=== PATIENT | female | born 1970 | race Caucasian/White ===

== ENCOUNTER 2018-07-31 08:42 | Emergency (ER) | payer SELFPAY ==
[2018-07-31] MEDS ORDERED: NA CHLORIDE 0.9% 1,000 ML ONE (09:31)
[2018-07-31] MEDS ORDERED: ONDANSETRON 4 MG/2 ML VIAL ONE (09:31)
[2018-07-31 09:35] LABS: Urine Bacteria 20-50 /HPF (<20); Urine Culture Reflex Order NOT NEEDED; Urine RBC NONE SEEN /HPF (NONE SEEN)
[2018-07-31 09:43] LABS: Urine Blood TRACE (NEG); Urine Glucose 3+ (NEG); Urine Protein 1+ (NEG); Urine Specific Gravity 1.015 (1.005-1.030)
[2018-07-31 09:56] LABS: Albumin 4.3 g/dL (3.4-5.0); Bilirubin Direct 0.1 mg/dL (0-0.2); Bilirubin Total 0.4 mg/dL (0.2-1.0); Potassium 4.7 mmol/L (3.5-5.1); Protein, Total 8.2 g/dL (6.4-8.2)
--- NOTE | 2018-07-31 10:13 | ER ---
Nurse's Notes [facility] Name: Chantal Lunsford Age: 48 yrs Sex: Female : 1970 Arrival Date: 07/31/2018 Time: 08:46 Bed 19 Private MD: Unknown, Unknown Diagnosis: Vomiting;Diarrhea, unspecified Presentation: 07/31 08:58 Presenting complaint: Patient states: vomiting, diarrhea, abd pain since last night. iw Transition of care: patient was not received from another setting of care. Onset of symptoms was July 31, 2018. Risk Assessment: Do you want to hurt yourself or someone else? Patient reports no desire to harm self or others. Initial Sepsis Screen: Does the patient meet any 2 criteria? No. Patient's initial sepsis screen is negative. Does the patient have a suspected source of infection? No. Patient's initial sepsis screen is negative. Care prior to arrival: None. 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 - Social history:: Smoking status: Patient uses tobacco products, smokes one pack cigarettes per day. - Ebola Screening: : Patient negative for fever greater than or equal to 101.5 degrees Fahrenheit, and additional compatible Ebola Virus Disease symptoms Patient denies exposure to infectious person Patient denies travel to an Ebola-affected area in the 21 days before illness onset No symptoms or risks identified at this time. Screenin:11 Abuse screen: Denies threats or abuse. Nutritional screening: No deficits noted. em Tuberculosis screening: No symptoms or risk factors identified. Fall Risk None identified. Assessment: 09:11 General: Appears in no apparent distress. comfortable, Behavior is calm, cooperative, em Reports chills for 12-24 hours. Pain: Complains of pain in abdomen Pain currently is 8 out of 10 on a pain scale. Pain began 1 day ago. Neuro: Level of Consciousness is awake, alert, obeys commands, Oriented to person, place, time, situation. Cardiovascular: Capillary refill < 3 seconds Patient's skin is warm and dry. Respiratory: Airway is patent Respiratory effort is even, unlabored, Respiratory pattern is regular, symmetrical. GI: Abdomen is flat, Bowel sounds present X 4 quads. Abd is soft X 4 quads Abdomen is tender to palpation in abdomen diffusely Reports diarrhea, nausea, vomiting. : Denies burning with urination. Derm: Skin is intact, is healthy with good turgor, Skin is pink, warm \T\ dry. Musculoskeletal: Capillary refill < 3 seconds, Range of motion: intact in all extremities. 09:30 Reassessment: Patient appears in no apparent distress at this time. I agree with above iw assessment by Kirt Metzger LVN. 10:35 Reassessment: Patient appears in no apparent distress at this time. Patient and/or em family updated on plan of care and expected duration. Pain level reassessed. Patient is alert, oriented x 3, equal unlabored respirations, skin warm/dry/pink. pt up for D/C, pending results of new labs. 11:30 Reassessment: Patient appears in no apparent distress at this time. Patient and/or em family updated on plan of care and expected duration. Pain level reassessed. Patient is alert, oriented x 3, equal unlabored respirations, skin warm/dry/pink. Patient states symptoms have improved. Vital Signs: 09:01 BP 133 / 90; Pulse 97; Resp 16; Temp 98.2(TE); Pulse Ox 98% on R/A; Weight 72.57 kg; iw Height 5 ft. 1 in. (154.94 cm); Pain 8/10; 10:00 BP 111 / 64; Pulse 86; Resp 18; Pulse Ox 99% on R/A; em 11:00 BP 112 / 63; Pulse 84; Resp 16; Pulse Ox 100% on R/A; em 12:02 BP 111 / 68; Pulse 87; Resp 17; Pulse Ox 99% on R/A; em 09:01 Body Mass Index 30.23 (72.57 kg, 154.94 cm) iw ED Course: 08:46 Patient arrived in ED. ag5 08:46 Unknown, Unknown is Private Physician. ag5 08:49 Kirt Metzger LVN is Primary Nurse. em 08:54 Miguel Corey MD is Attending Physician. 09:00 Triage completed. iw 09:01 Arm band placed on. iw 09:11 Patient has correct armband on for positive identification. Placed in gown. Bed in low em position. Call light in reach. Adult w/ patient. Pulse ox on. NIBP on. 09:27 Urine collected: clean catch specimen, cloudy. em 11:57 No provider procedures requiring assistance completed. IV discontinued, intact, em bleeding controlled, No redness/swelling at site. Pressure dressing applied. Administered Medications: 09:32 Drug: NS 0.9% 1000 ml Route: IV; Rate: 1 bolus; Site: right antecubital; em 10:35 Follow up: IV Status: Completed infusion; IV Intake: 1000ml em 09:35 Drug: Zofran 4 mg Route: IVP; Site: right antecubital; iw 10:35 Follow up: Response: No adverse reaction; Nausea is decreased em Intake: 10:35 IV: 1000ml; Total: 1000ml. em Outcome: 10:12 Discharge ordered by MD. 11:57 Discharged to home ambulatory. em 11:57 Condition: stable 11:57 Discharge instructions given to patient, Instructed on discharge instructions, follow up and referral plans. medication usage, Demonstrated understanding of instructions, follow-up care, medications, Prescriptions given X 1. 12:02 Patient left the ED. em Signatures: Kirt Metzger, MACHINE PRECISION ETCHER MACHINE PRECISION ETCHER em Marie Pena, JAYCEE RN Miguel Corey MD MD Opal, Handy ag5 Corrections: (The following items were deleted from the chart) 10:37 10:35 Reassessment: Patient appears in no apparent distress at this time. Patient em and/or family updated on plan of care and expected duration. Pain level reassessed. Patient is alert, oriented x 3, equal unlabored respirations, skin warm/dry/pink. em
--- NOTE | 2018-07-31 10:14 | EDPHYS ---
Physician Documentation [facility] Name: Chantal Lunsford Age: 48 yrs Sex: Female : 1970 Arrival Date: 07/31/2018 Time: 08:46 Bed 19 Private MD: Unknown, Unknown ED Physician Miguel Corey HPI: 07/31 10:04 This 48 yrs old Female presents to ER via Ambulatory with complaints of gs Vomiting/Diarrhea. 10:04 The patient presents to the emergency department with nausea, vomiting, diarrhea. gs Onset: The symptoms/episode began/occurred yesterday. Possible causes: unknown. The symptoms are aggravated by nothing. The symptoms are alleviated by nothing. Associated signs and symptoms: Pertinent negatives: constipation, dysuria. Severity of symptoms: At their worst the symptoms were severe in the emergency department the symptoms have improved moderately. The patient has experienced similar episodes in the past, a few times. The patient has not recently seen a physician. 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 - Social history:: Smoking status: Patient uses tobacco products, smokes one pack cigarettes per day. - Ebola Screening: : Patient negative for fever greater than or equal to 101.5 degrees Fahrenheit, and additional compatible Ebola Virus Disease symptoms Patient denies exposure to infectious person Patient denies travel to an Ebola-affected area in the 21 days before illness onset No symptoms or risks identified at this time. ROS: 10:04 Abdomen/GI: Negative for black/tarry stool. gs 10:04 All other systems are negative. Exam: 10:04 Head/Face: Normocephalic, atraumatic. Eyes: Pupils equal round and reactive to light, gs extra-ocular motions intact. Lids and lashes normal. Conjunctiva and sclera are non-icteric and not injected. Cornea within normal limits. Periorbital areas with no swelling, redness, or edema. ENT: Nares patent. No nasal discharge, no septal abnormalities noted. Tympanic membranes are normal and external auditory canals are clear. Oropharynx with no redness, swelling, or masses, exudates, or evidence of obstruction, uvula midline. Mucous membranes moist. Neck: Trachea midline, no thyromegaly or masses palpated, and no cervical lymphadenopathy. Supple, full range of motion without nuchal rigidity, or vertebral point tenderness. No Meningismus. Chest/axilla: Normal chest wall appearance and motion. Nontender with no deformity. No lesions are appreciated. Cardiovascular: Regular rate and rhythm with a normal S1 and S2. No gallops, murmurs, or rubs. Normal PMI, no JVD. No pulse deficits. Respiratory: Lungs have equal breath sounds bilaterally, clear to auscultation and percussion. No rales, rhonchi or wheezes noted. No increased work of breathing, no retractions or nasal flaring. Abdomen/GI: Soft, non-tender, with normal bowel sounds. No distension or tympany. No guarding or rebound. No evidence of tenderness throughout. Back: No spinal tenderness. No costovertebral tenderness. Full range of motion. Skin: Warm, dry with normal turgor. Normal color with no rashes, no lesions, and no evidence of cellulitis. MS/ Extremity: Pulses equal, no cyanosis. Neurovascular intact. Full, normal range of motion. Neuro: Awake and alert, GCS 15, oriented to person, place, time, and situation. Cranial nerves II-XII grossly intact. Motor strength 5/5 in all extremities. Sensory grossly intact. Cerebellar exam normal. Normal gait. 10:04 Constitutional: The patient appears alert, awake. Vital Signs: 09:01 BP 133 / 90; Pulse 97; Resp 16; Temp 98.2(TE); Pulse Ox 98% on R/A; Weight 72.57 kg; iw Height 5 ft. 1 in. (154.94 cm); Pain 8/10; 10:00 BP 111 / 64; Pulse 86; Resp 18; Pulse Ox 99% on R/A; em 11:00 BP 112 / 63; Pulse 84; Resp 16; Pulse Ox 100% on R/A; em 12:02 BP 111 / 68; Pulse 87; Resp 17; Pulse Ox 99% on R/A; em 09:01 Body Mass Index 30.23 (72.57 kg, 154.94 cm) iw MDM: 09:19 Patient medically screened. gs 10:04 Differential diagnosis: Nonspecific abd pain, viral gastroenteritis, gastroenteritis. Data reviewed: vital signs, nurses notes, lab test result(s). Counseling: I had a detailed discussion with the patient and/or guardian regarding: the historical points, exam findings, and any diagnostic results supporting the discharge/admit diagnosis, the presence of at least one elevated blood pressure reading (>120/80) during this emergency department visit. Response to treatment: the patient's symptoms have markedly improved after treatment, the patient's condition has returned to base line, patient is well hydrated. and as a result, I will discharge patient. Special discussion: I have referred the patient to see his PCP for further evaluation of high blood pressure. 07/31 09:04 Order name: Urine Microscopic Only; Complete Time: 10:55 07/31 09:12 Order name: Creatinine for Radiology; Complete Time: 10:55 07/31 09:12 Order name: Hepatic Function; Complete Time: 10:55 07/31 09:12 Order name: CMP; Complete Time: 10:55 07/31 09:28 Order name: Urine Dipstick--Ancillary (enter results); Complete Time: 10:55 ks 07/31 09:04 Order name: Urine Test (obtain specimen); Complete Time: 09:28 07/31 09:28 Order name: Urine --Ancillary (enter results); Complete Time: 10:55 ks 07/31 10:19 Order name: CBC with Diff; Complete Time: 11:40 em 07/31 10:48 Order name: Lipase; Complete Time: 10:55 EDMD 07/31 10:57 Order name: CBC Smear Scan; Complete Time: 11:40 EDMD 07/31 09:04 Order name: Urine Dipstick-Ancillary (obtain specimen); Complete Time: 09:28 07/31 09:12 Order name: IV Saline Lock; Complete Time: :31 07/31 09:12 Order name: Labs collected and sent; Complete Time: :31 gs Administered Medications: 09:32 Drug: NS 0.9% 1000 ml Route: IV; Rate: 1 bolus; Site: right antecubital; em 10:35 Follow up: IV Status: Completed infusion; IV Intake: 1000ml em 09:35 Drug: Zofran 4 mg Route: IVP; Site: right antecubital; 10:35 Follow up: Response: No adverse reaction; Nausea is decreased em Disposition: 07/31/18 10:12 Discharged to Home. Impression: Vomiting, Diarrhea, unspecified. - Condition is Stable. - Discharge Instructions: Diarrhea, Adult, Nausea and Vomiting, Adult, Managing Your Hypertension. - Prescriptions for Zofran 4 mg Oral Tablet - take 1 tablet by ORAL route every 12 hours As needed; 10 tablet. - Medication Reconciliation Form, Thank You Letter, Antibiotic Education, Prescription Opioid Use form. - Follow up: Private Physician; When: 2 - 3 days; Reason: Re-evaluation by your physician. Signatures: Dispatcher [employer] EDKirt Hui, Marie Rae LVN, RN RN iw Miguel Corey MD MD gs Corrections: (The following items were deleted from the chart) 09:15 09:14 BASIC METABOLIC PANEL+C.LAB.BRZ ordered. EDMD EDMS 10:48 10:41 LIPASE+C.LAB.BRZ ordered. EDMD EDMS 12:02 10:12 07/31/2018 10:12 Discharged to Home. Impression: Vomiting; Diarrhea, unspecified. em Condition is Stable. Forms are Medication Reconciliation Form, Thank You Letter, Antibiotic Education, Prescription Opioid Use. Follow up: Private Physician; When: 2 - 3 days; Reason: Re-evaluation by your physician. gs
[2018-07-31 10:53] LABS: Absolute Lymphocytes (CBC) 0.5 K/uL (0.7-4.9); Absolute Monocytes 0.5 K/uL (0.1-1.3); Absolute Neutrophil 13.4 K/uL (1.8-8.0); Basophils % 0.5 % (0-1.3); Eosinophils % 0.7 % (0-4.4); Hematocrit 39.4 % (36.0-45.0); Lymphocytes % 3.3 % (15.3-44.8); MPV 9.4 fL (7.6-11.3); Monocytes % 3.4 % (3.3-12.3); RBC Red Blood Cell Count 4.78 M/uL (3.86-4.86)
[2018-07-31 11:26] LABS: Blood Morphology Comment NOT SEEN (NOT SEEN); Platelet Estimate ADEQ; Urine White Blood Cell Casts OK
== END 2018-07-31 12:02 | disposition home or self-care (01) ==
LOC: ER 08:42
DX: R11.2 Nausea with vomiting, unspecified (principal); R19.7 Diarrhea, unspecified; Z88.1 Allergy status to other antibiotic agents; Z88.0 Allergy status to penicillin; F17.210 Nicotine dependence, cigarettes, uncomplicated
CPT/HCPCS: 36415; 80053; 80076; 81003; 81015; 81025; 83690; 85025; 96361; 96374; 99284; J2405; J7030

== ENCOUNTER 2022-01-25 12:12 | Emergency (ER) | payer SELFPAY ==
--- OUTSIDE RECORDS SUMMARY | 2022-01-25 12:15 | XMS REPORT | Clinical Summary ---
:1970 Author Organization [facility] Address [address] [place] [address] Care Team Providers Name Role Phone Melanie Hays MD Unavailable Unavailable Allergies Not on File Medications Not on file Active Problems Not on file Social History Tobacco Use Types Packs/Day Years Used Date Smoking Tobacco: Never Assessed Sex Assigned at Date Recorded Not on file Last Filed Vital Signs Not on file Plan of Treatment Not on file Results Not on fileafter 01/25/2021 Care Teams Support Assistant Relationship Specialty Start Date End Date Melanie Hays MD Consulting Physician Preventive Medicine 01/18/21 [address] [place] [address]
--- OUTSIDE RECORDS SUMMARY | 2022-01-25 12:15 | XMS REPORT | Continuity of Care Document ---
:1970 Author Organization [facility] t Address [address] [place] [address] Care Team Providers Name Role Phone Asked, No Pcp Primary Care Physician Unavailable ADELA LIU Attending Clinician Unavailable HERMAN MEJIAS Attending Clinician Unavailable Payers Payer Name Policy Type Policy Number Effective Date Expiration Date S ource Problems This patient has no known problems. Allergies, Adverse Reactions, Alerts Allergy Allergy Status Severity Reaction(s) Onset Inactive Treating Comm ents Source Name Type Date Date Clinician [place] [facility] 0 [facility] [place] [facility] [address] [facility] DA Active U CHEST PAIN [facility] 10[facility] [place] [facility] [address] [facility] Propensi Active Other (See 0 States Me thodi ins ty to Comments) 05-[address] adverse 00:00: and Hospita reaction 00 unalbe to l s to move drug Family History Family Member Diagnosis Comments Start Date Stop Date Source Natural father Glaucoma [facility] Natural father Hypertension [facility] Natural father Stroke [facility] Maternal grandmother Cancer [facility] Natural mother Hypertension [facility] Paternal grandfather Cancer [facility] Paternal grandmother Diabetes [facility] Social History Social Habit Start Date Stop Date Quantity Comments Source History of tobacco Smokes tobacco [facility] use daily Hospital Cigarettes smoked 2017-06-29 2017-06-[address] current (pack per 00:00:00 00:00:00 Hospita l day) - Reported Tobacco use and 2017-06-29 2017-06-29 Smokeless tobacco [facility] exposure 00:00:00 00:00:00 non-user Hospital Alcohol intake 2017-06-29 2017-06-29 Current [employer] 00:00:00 00:00:00 non-drinker of Hospital alcohol (finding) Sex Ass[birth year] At [birth year] [employer] 00:00:00 00:00:00 Hospital Smoking Status Start Date Stop Date Source Smokes tobacco daily 2017-06-29 00:00:00 [facility] Medications Ordered Filled Start Stop Current Ordering Indication Dosage Frequency Signature Comments Components Source Medication Medication Date Date Medication? Clinician (SIG) Name Name adriancassiusiptylagustin Yes 25mg QD Take 25 mg [facility] ne 5-[address] (PAMELOR) 08:46: nightly. [facility]osp [facility] 25 MG 58 l capsule Procedures This patient has no known procedures. Plan of Care Planned Activity Planned Date Details Comments Source Future Scheduled 2021-12-20 HEPATITIS B VACCINES [facility] Test 01:20:20 (1 of 3 - 3-dose series) [code = HEPATITIS B VACCINES (1 of 3 - 3-dose series)] Future Scheduled 2021-12-20 COVID-19 VACCINE (#1) [facility] Test 01:20:20 [code = COVID-19 VACCINE (#1)] Future Scheduled 2021-12-20 Screening for [facility] Test 01:20:20 malignant neoplasm of cervix (procedure) [code = 913932939] Future Scheduled 2021-12-20 BREAST CANCER [facility] Test 01:20:20 SCREENING [code = BREAST CANCER SCREENING] Future Scheduled 2021-12-20 COLONOSCOPY SCREENING [facility] Test 01:20:20 [code = COLONOSCOPY SCREENING] Future Scheduled 2021-12-20 SHINGLES VACCINES (1 [facility] Test 01:20:20 of 2) [code = SHINGLES VACCINES (1 of 2)] Future Scheduled 2021-12-20 INFLUENZA VACCINE Method [facility] Test 01:20:20 [code = INFLUENZA VACCINE] Encounters Start End Encounter Admission Attending Care Care Encounter Source Date/Time Date/Time Type Type Clinicians Facility Department ID 2019-10-28 Inpatient HCANW MICHAEL [id number] [facility] 10:23:[address] [place] [address] [facility] 2021-04-12 2021-04-12 Outpatient NOE, [facility] [id number] 08:42:39 23:59:[address] [facility] 2021-01-23 2021-01-23 Outpatient CORONA MEJIAS KRISTA [facility] [id number] 09:00:00 23:59:00 HERMAN hooks Results Test Description Test Time Test Comments Results Result Sourc e Comments CULTURE, URINE 2021-06-05 SPECIMEN NUMBER: 13:28:59 [id number] CULTURE, URINE SPECIMEN NUMBER: [id number] SPECIMEN COMMENT: URINE SOURCE: URINE REPORT STATUS: FINAL FINAL REPORT: 06/05/2021 10-50,000 CFU/ML UROGENITAL LEANNE PRESENT NO COMMON PATHOGENS UNLESS OTHERWISE INDICATED, ALL TESTING PERFORMED [facility] [address] [place] [address] NEGATIVE SPOTTER: RUPESH VAZ M.D. CLIA NUMBER [id number] [facility] [place]. [id number] BREAST ULTRASOUND 2020-03-22 BILATERAL 14:51:31 Name: Chantal : 1970 Sex: F - DIAG MAMM BILATERAL DANII CAD DIGITALBILATERAL FIRST EVER DIGITAL DIAGNOSTIC MAMMOGRAM 3D/2D WITH CAD: 03/22/2020LINICAL: Abnormal clinical breast exam. Digital breast tomosynthesis was performed in addition to routine CC and MLO views. Current mammographic images were evaluated by either a [employer] M-Vu or a [employer] ImageCrushBlvdcker CAD (computer aided detection system). No prior exams were available for comparison. The tissue of both breasts has scattered fibroglandular background echotexture. No suspicious mass, architectural distortion, malignant type calcification, or lymph node abnormality detected. INCOMPLETE: ADDITIONAL IMAGING EVALUATION NEEDEDThere is no mammographic evidence of malignancy. Bilateral survey ultrasound to follow.- BREAST ULTRASOUND BILATERALULTRASOUND OF BOTH BREASTS: 03/22/2020No prior exams were available for comparison. Color flow and real-time ultrasound of both breasts were performed. Kulkarni scale images of the real-time examination were reviewed. The breast tissue has heterogeneous background echotexture. Bilateral survey ultrasound demonstrates no suspicious sonographic abnormality. No axillary lymphadenopathy was seen.IMPRESSION: NEGATIVE There is no sonographic evidence of malignancy. Resume annual screening mammography in one year. Clinical follow up is also recommended, and further management of clinical findings should be based on clinical examination.Aamir Davis M.D. ss/:03/22/2020 14:51:31 Entry: - 03/23/2020 11:25:18Imaging Technologist: Alyx RUSSELL, [facility]-FWletter sent: BIRADS 1-2 Combo FU Letter Mammogram BI-RADS: 0 Incomplete: Additional Imaging Evaluation Needed Ultrasound BI-RADS: 1 Negative DIAG MAMM 2020-03-22 BILATERAL DANII 14:51:31 CAD DIGITAL Name: Chantal : 1970 Sex: F - DIAG MAMM BILATERAL DANII CAD DIGITALBILATERAL FIRST EVER DIGITAL DIAGNOSTIC MAMMOGRAM 3D/2D WITH CAD: 03/22/2020LINICAL: Abnormal clinical breast exam. Digital breast tomosynthesis was performed in addition to routine CC and MLO views. Current mammographic images were evaluated by either a [employer] M-Vu or a [employer] CAD (computer aided detection system). No prior exams were available for comparison. The tissue of both breasts has scattered fibroglandular background echotexture. No suspicious mass, architectural distortion, malignant type calcification, or lymph node abnormality detected. INCOMPLETE: ADDITIONAL IMAGING EVALUATION NEEDEDThere is no mammographic evidence of malignancy. Bilateral survey ultrasound to follow.- BREAST ULTRASOUND BILATERALULTRASOUND OF BOTH BREASTS: 03/22/2020No prior exams were available for comparison. Color flow and real-time ultrasound of both breasts were performed. Kulkarni scale images of the real-time examination were reviewed. The breast tissue has heterogeneous background echotexture. Bilateral survey ultrasound demonstrates no suspicious sonographic abnormality. No axillary lymphadenopathy was seen.IMPRESSION: NEGATIVE There is no sonographic evidence of malignancy. Resume annual screening mammography in one year. Clinical follow up is also recommended, and further management of clinical findings should be based on clinical examination.Aamir Davis M.D. ss/:03/22/2020 14:51:31 Entry: - 03/23/2020 11:25:18Imaging Technologist: Alyx Barnes , [facility]-FWletter sent: BIRADS 1-2 Combo FU Letter Mammogram BI-RADS: 0 Incomplete: Additional Imaging Evaluation Needed Ultrasound BI-RADS: 1 Negative DIAG MAMM 2020-03-22 BILATERAL DANII 14:51:31 CAD DIGITAL Name: Chantal : 1970 Sex: F - DIAG MAMM BILATERAL DANII CAD DIGITALBILATERAL FIRST EVER DIGITAL DIAGNOSTIC MAMMOGRAM 3D/2D WITH CAD: 03/22/2020LINICAL: Abnormal clinical breast exam. Digital breast tomosynthesis was performed in addition to routine CC and MLO views. Current mammographic images were evaluated by either a [employer] M-Vu or a [employer] Image[employer]er CAD (computer aided detection system). No prior exams were available for comparison. The tissue of both breasts has scattered fibroglandular background echotexture. No suspicious mass, architectural distortion, malignant type calcification, or lymph node abnormality detected. INCOMPLETE: ADDITIONAL IMAGING EVALUATION NEEDEDThere is no mammographic evidence of malignancy. Bilateral survey ultrasound to follow.- BREAST ULTRASOUND BILATERALULTRASOUND OF BOTH BREASTS: 03/22/2020No prior exams were available for comparison. Color flow and real-time ultrasound of both breasts were performed. Kulkarni scale images of the real-time examination were reviewed. The breast tissue has heterogeneous background echotexture. Bilateral survey ultrasound demonstrates no suspicious sonographic abnormality. No axillary lymphadenopathy was seen.IMPRESSION: NEGATIVE There is no sonographic evidence of malignancy. Resume annual screening mammography in one year. Clinical follow up is also recommended, and further management of clinical findings should be based on clinical examination.Aamir Davis M.D. ss/:03/22/2020 14:51:31 Entry: - 03/23/2020 11:25:18Imaging Technologist: Alyx RUSSELL, [facility]-FWletter sent: BIRADS 1-2 Combo FU Letter Mammogram BI-RADS: 0 Incomplete: Additional Imaging Evaluation Needed Ultrasound BI-RADS: 1 Negative - CT ABD PELVIS 2019-10-28 Patient Name: W/CONT 12:39:00 CHANTAL MEJIA Unit No: [id number] EXAMS: CPT: [id number] CT ABD PELVIS W/CONT [id number] EXAM: CT ABDOMEN AND PELVIS WITH CONTRAST INDICATION: RECTAL PAIN/BLEEDING COMPARISON: None. TECHNIQUE:Abdomen and pelvis were scanned utilizing a multidetector helical scanner from the diaphragm to the ischial tuberosities after the administration of IV contrast . 100 cc of Isovue-300 was given. Coronal and sagittal reformations were obtained. CT dose reduction was performed with automatic exposure control. FINDINGS: LINES and TUBES: None. LOWER THORAX: Normal. HEPATOBILIARY: No focal lesions in the enhanced portions of the visualized liver. No biliary ductal dilatation. GALLBLADDER: No radiopaque stones or sludge. No inflammation around the gallbladder. SPLEEN: No splenomegaly. PANCREAS: No focal masses or ductal dilatation. ADRENALS: No adrenal nodules. KIDNEYS/URETERS: No hydronephrosis. There is a punctate 1 mm stone in the midpole right kidney. No obstructing stone. There is a few incidental scattered tiny bilateral cysts. GI TRACT: No abnormal distention, wall thickening, or evidence of bowel obstruction. Appendix is normal.No evidence of diverticulitis. PELVIC ORGANS/BLADDER: The uterus and ovaries are normal. LYMPH NODES: No lymphadenopathy. VESSELS: No aortic aneurysm or thrombus. PERITONEUM / RETROPERITONEUM: No free air or fluid. BONES: Unremarkable. SOFT TISSUES: Unremarkable. IMPRESSION: 1. No active inflammatory changes or acute findings Name: CHANTAL MEJIA [facility] Phys: Cielo Whitneyayo Vazquez PA-C [id number] [facility] : 1970 Age: 49 Sex: [place] [address] Loc: N.ERS Exam Date: 10/28/2019 Status: REG ER PH: FAX: PAGE 1 Signed Report (CONTINUED) Patient Name: CHANTAL MEJIA Unit No: [id number] EXAMS: CPT: [id number] CT ABD PELVIS W/CONT [id number] (Continued) at 1239 Reported and signed by: Luis Enrique Hutchinson MD CC: Technologist: Susie Jcakson CTDI: 12.18 DLP: 650.72 Trscr Dt/Tm: 10/28/2019 (1239) by:[email or web address] Orig Print D/T: S: 10/28/2019 (1243) BATCH NO: N/A Name: CHANTAL MEJIA [facility] Phys: XAVI DunnPeyton Vazquez PA-C [id number] [facility] : 1970 Age: 49 Sex: [place] [address] Loc: N.ERS Exam Date: 10/28/2019 Status: REG ER PH: FAX: PAGE 2 Signed Report BASIC METABOLIC PANEL 2019-10-28 11:47:00 Test Item Value Reference Range Interpretation Comme nts SODIUM (test code = NA) 136 mmol/L 135-145 N POTASSIUM (test code = K) 4.0 mmol/L 3.6-5.0 N CHLORIDE (test code = CL) 101 mmol/L 101-111 N CARBON DIOXIDE (test code = 26 mmol/L 21-31 N CO2) GLUCOSE (test code = GLU) 105 mg/dl 70-100 H BLOOD UREA NITROGEN (test 11 mg/dl 6-20 N code = BUN) GLOMERULAR FILTRATION RATE >=60 max estimate >60 The estimated glomerular (test code = GFR) filtration rate is computed usingpatient ra ce, age (>18), sex, and serum creatinine. If anyof the needed data ela ments are missing the Lab oratory cannot compute an estimation of the glomerul ar filtration rate. CREATININE (test code = 0.83 mg/dL 0.44-1.03 N CREAT) CALCIUM (test code = CA) 8.9 mg/dL 8.5-10.5 N LIVER FUNCTION [id number] 11:47:00 Test Item Value Reference Range Interpretation Comments TOTAL PROTEIN (test code = PROT) 6.6 g/dL 6.7-8.2 L ALBUMIN (test code = ALB) 4.1 g/dL 3.2-5.5 N BILIRUBIN TOTAL (test code = BILT) 0.50 mg/dL 0.2-1.3 N BILIRUBIN DIRECT (test code = 0.1 mg/dL 0.00-0.20 N BILD) SGOT/AST (test code = AST) 17 U/L 10-42 N SGPT/ALT (test code = ALT) 15 U/L 10-60 N ALKALINE PHOSPHATASE (test code = 61 U/L 42-121 N ALKP) [id number] 11:47:00 Test Item Value Reference Range Interpretation Comments LIPASE (test code = LIP) 41 IU/L 22-51 N BASIC METABOLIC [id number] 11:42:00 Test Item Value Reference Range Interpretation Comments SODIUM (test code 136 mmol/L 135-145 N = NA) POTASSIUM (test 4.0 mmol/L 3.6-5.0 N code = K) CHLORIDE (test 101 mmol/L 101-111 N code = CL) CARBON DIOXIDE 26 mmol/L 21-31 N (test code = CO2) GLUCOSE (test code 105 mg/dl 70-100 H = GLU) BLOOD UREA 11 mg/dl 6-20 N NITROGEN (test code = BUN) GLOMERULAR >=60 max >60 The estimated FILTRATION RATE estimate glomerular (test code = GFR) filtration rate is computed usingpatient ra ce, age (>18), sex, and serum creatinin e. If anyof the neede d data elements a re missing the Laboratory lisandro ot compute an estimation of t he glomerular filtration rate . CREATININE (test 0.83 mg/dL 0.44-1.03 N code = CREAT) CALCIUM (test code 8.9 mg/dL 8.5-10.5 N = CA) LIVER FUNCTION [id number] 11:42:00 Test Item Value Reference Range Interpretation Comments TOTAL PROTEIN (test code = PROT) 6.6 g/dL 6.7-8.2 L ALBUMIN (test code = ALB) 4.1 g/dL 3.2-5.5 N BILIRUBIN TOTAL (test code = BILT) mg/dL 0.2-1.3 BILIRUBIN DIRECT (test code = BILD) mg/dL 0.00-0.20 SGOT/AST (test code = AST) U/L 10-42 SGPT/ALT (test code = ALT) U/L 10-60 ALKALINE PHOSPHATASE (test code = U/L 42-121 ALKP) [id number] 11:42:00 Test Item Value Reference Range Interpretation Comments LIPASE (test code = LIP) 41 IU/L 22-51 N UA RFLX MICR CULT IF [id number] 11:42:00 Test Item Value Reference Range Interpretation Comments UA COLOR (test code = COLU) Straw YELLOW UA APPEARANCE (test code = APPU) Clear CLEAR UA GLUCOSE DIPSTICK (test code = NEGATIVE NEGATIVE DGLUU) UA BILIRUBIN DIPSTICK (test code = NEGATIVE NEGATIVE BILU) UA KETONE DIPSTICK (test code = NEGATIVE NEGATIVE KETU) UA SPECIFIC GRAVITY (test code = 1.004 1.001-1.030 SGU) UA BLOOD DIPSTICK (test code = ABDIRAHMAN) NEGATIVE NEGATIVE UA PH DIPSTICK (test code = ERROL) 6.0 5.0-9.0 UA PROTEIN DIPSTICK (test code = NEGATIVE NEGATIVE PROU) UA UROBILINOGEN DIPSTICK (test code NEGATIVE <=1.0 = URO) UA NITRITE DIPSTICK (test code = NEGATIVE NEGATIVE JACK) UA ASCORBIC ACID DIPSTICK (test NEGATIVE code = AAU) UA LEUKOCYTE ESTERASE DIPSTICK NEGATIVE NEGATIVE (test code = LEUU) UA WBC (test code = WBCUR) 0-5 /HPF 0-5 UA RBC (test code = RBCU) None /HPF 0-5 UA EPITHELIAL CELLS (test code = RARE /LPF NONE-FEW EPIU) UA BACTERIA (test code = BACU) None /HPF NONE SEEN Indication for culture: Lower Abdomen PainSpec Comments: Clean CatchBASIC METABOLIC [id number] 11:40:00 Test Item Value Reference Range Interpretation Comments SODIUM (test code 136 mmol/L 135-145 N = NA) POTASSIUM (test 4.0 mmol/L 3.6-5.0 N code = K) CHLORIDE (test 101 mmol/L 101-111 N code = CL) CARBON DIOXIDE 26 mmol/L 21-31 N (test code = CO2) GLUCOSE (test code 105 mg/dl 70-100 H = GLU) BLOOD UREA 11 mg/dl 6-20 N NITROGEN (test code = BUN) GLOMERULAR >=60 max >60 The estimated FILTRATION RATE estimate glomerular (test code = GFR) filtration rate is computed usingpatient ra ce, age (>18), sex, and serum creatinin e. If anyof the neede d data elements a re missing the Laboratory lisandro ot compute an estimation of t he glomerular filtration rate . CREATININE (test 0.83 mg/dL 0.44-1.03 N code = CREAT) CALCIUM (test code 8.9 mg/dL 8.5-10.5 N = CA) LIVER FUNCTION [id number] 11:40:00 Test Item Value Reference Range Interpretation Comments TOTAL PROTEIN (test code = PROT) g/dL 6.7-8.2 ALBUMIN (test code = ALB) g/dL 3.2-5.5 BILIRUBIN TOTAL (test code = BILT) mg/dL 0.2-1.3 BILIRUBIN DIRECT (test code = BILD) mg/dL 0.00-0.20 SGOT/AST (test code = AST) U/L 10-42 SGPT/ALT (test code = ALT) U/L 10-60 ALKALINE PHOSPHATASE (test code = U/L 42-121 ALKP) [id number] 11:40:00 Test Item Value Reference Range Interpretation Comments LIPASE (test code = LIP) IU/L 22-51 CBC W/AUTO [id number] 11:19:00 Test Item Value Reference Range Interpretation Comments WHITE BLOOD CELL (test code = 11.7 x10 3/uL 3.2-11.5 H WBC) RED BLOOD CELL (test code = 4.67 x10(6)/m 3.70-5.10 N RBC) HEMOGLOBIN (test code = HGB) 12.6 g/dL 12.0-15.0 N HEMATOCRIT (test code = HCT) 40.0 % 35.7-44.8 N MEAN CELL VOLUME (test code = 86 fL 80-100 N MCV) MEAN CELL HGB (test code = MCH) 27.0 pg 26.2-33.8 N MEAN CELL HGB CONCENTRATION 31.5 g/dL 30.0-34.0 N (test code = MCHC) RED CELL DISTRIBUTION WIDTH 12.6 % 11.3-14.5 N (test code = RDW) PLATELET COUNT (test code = 364 x10 3/uL 130-408 N PLT) MEAN PLATELET VOLUME (test code 10.0 fL 8.6-12.6 N = MPV) NEUTROPHIL % (test code = NT%) 59.9 % 40.0-70.0 N IMMATURE GRANULOCYTE % (test 0.4 % 0.0-2.0 N code = IG%) LYMPHOCYTE % (test code = LY%) 27.5 % 20-40 N MONOCYTE % (test code = MO%) 7.8 % 1-10 N EOSINOPHIL % (test code = EO%) 2.8 % 0.0-5.0 N BASOPHIL % (test code = BA%) 1.6 % 0.0-1.0 H NUCLEATED RBC % (test code = 0.0 % 0.0-0.9 N NRBC%) NEUTROPHIL # (test code = NT#) 7.0 x10 3/uL 1.6-7.2 N LYMPHOCYTE # (test code = LY#) 3.21 x10 3/uL 1.1-2.7 H MONOCYTE # (test code = MO#) 0.9 x10 3/uL 0.3-0.8 H EOSINOPHIL # (test code = EO#) 0.3 x10 3/uL 0.0-0.5 N BASOPHIL # (test code = BA#) 0.2 x10 3/uL 0.0-0.1 H
[2022-01-25] MEDS ORDERED: dexAMETHasone 10 MG/ML VIAL ONE (13:06)
[2022-01-25] MEDS ORDERED: ALBUTEROL 2.5 MG/3 ML NEB SOL ONE (13:07)
[2022-01-25] MEDS ORDERED: NA CHLORIDE 0.9% 1,000 ML ONE (13:07)
[2022-01-25] MEDS ORDERED: IPRATROPIUM BROM 0.5MG/2.5ML ONE (13:07)
[2022-01-25] MEDS ORDERED: MAGNESIUM SULFATE 1 gm IVPB 1 GM/100 ML BAG IV ONE (13:07)
[2022-01-25] MEDS ORDERED: HYDROCODONE/CHLORPHEN 5 ML/OSYR ONE (13:31)
--- NOTE | 2022-01-25 13:31 | RAD REPORT ---
EXAM DESCRIPTION: RAD - Chest Pa And Lat (2 Views) - 01/25/2022 1:16 pm CLINICAL HISTORY: SOB COMPARISON: None FINDINGS: Lines: None. Lungs: No evidence of edema or pneumonia. Pleural: No significant pleural effusions or pneumothorax. Cardiac: The heart size is within normal limits. Mediastinum: Within normal limits. Bones: No acute fractures. Other: None IMPRESSION: No acute cardiopulmonary disease.
[2022-01-25 13:53] LABS: SARS-COV-2 RT PCR NEGATIVE (NEGATIVE)
[2022-01-25] MEDS ORDERED: LIDOCAINE 1% MPF 5 ML VIAL ONE (14:28)
--- NOTE | 2022-01-25 15:32 | ER ---
Nurse's Notes [facility] Name: Chantal Piña Age: 52 yrs Sex: Female : 1970 Arrival Date: 01/25/2022 Time: 12:13 Bed 26 Private MD: Diagnosis: Cough;Wheezing Presentation: 01/25 12:51 Chief complaint: Patient states: chest tightness, cough, SOB , started yesterday. iw Coronavirus screen: Client presents with at least one sign or symptom that may indicate coronavirus-19. Ebola Screen: Patient negative for fever greater than or equal to 101.5 degrees Fahrenheit, and additional compatible Ebola Virus Disease symptoms Patient denies exposure to infectious person. Patient denies travel to an Ebola-affected area in the 21 days before illness onset. No symptoms or risks identified at this time. Initial Sepsis Screen: Does the patient meet any 2 criteria? No. Patient's initial sepsis screen is negative. Does the patient have a suspected source of infection? No. Patient's initial sepsis screen is negative. Risk Assessment: Do you want to hurt yourself or someone else? Patient reports no desire to harm self or others. Onset of symptoms was January 24, 2022. 12:51 Method Of Arrival: Ambulatory iw 12:51 Acuity: NIKI 3 iw Triage Assessment: 13:00 General: Appears distressed, Behavior is cooperative, appropriate for age, anxious. bp Pain: Denies pain. EENT: No deficits noted. Neuro: No deficits noted. Cardiovascular: Rhythm is sinus rhythm. Respiratory: Reports shortness of breath cough that is Breath sounds with wheezes Onset: The symptoms/episode began/occurred today, the patient has moderate shortness of breath. GI: No signs and/or symptoms were reported involving the gastrointestinal system. : No signs and/or symptoms were reported regarding the genitourinary system. Derm: No deficits noted. Musculoskeletal: No deficits noted. Historical: - Allergies: 12:52 PENICILLINS; iw 12:52 Cipro PO; iw - Immunization history:: Adult Immunizations up to date. - Social history:: Smoking status: unknown. Screenin:00 Abuse screen: Denies threats or abuse. Denies injuries from another. Nutritional bp screening: No deficits noted. Tuberculosis screening: No symptoms or risk factors identified. Fall Risk None identified. Assessment: 13:00 General: SEE TRIAGE NOTE. bp 15:29 Reassessment: No changes from previously documented assessment. Cardiovascular: Rhythm bp is sinus rhythm. Respiratory: Airway is patent Respiratory effort is even, Breath sounds are coarse bilaterally. Breath sounds with wheezes bilaterally. 15:44 Reassessment: PT DC HOME AMBULATORY. bp Vital Signs: 12:51 BP 110 / 61; Pulse 74; Resp 20; Temp 98.1; Pulse Ox 97% on R/A; Weight 77.11 kg; Height iw 5 ft. 1 in. (154.94 cm); 13:57 BP 114 / 68; Pulse 82; Resp 20; Pulse Ox 100% on Nebulizer Mask; ko1 15:25 BP 140 / 86; Pulse 82; Resp 20; Pulse Ox 94% ; bp 12:51 Body Mass Index 32.12 (77.11 kg, 154.94 cm) iw ED Course: 12:13 Patient arrived in ED. am2 12:52 Triage completed. iw 12:52 Arm band placed on. iw 12:53 Daniela Miranda FNP-C is PHCP. snw 12:54 Julio Cesar Rodriguez MD is Attending Physician. snw 12:58 Rajeev Garrido, JAYCEE is Primary Nurse. bp 13:00 Patient has correct armband on for positive identification. Bed in low position. Call bp light in reach. Side rails up X2. 13:15 Inserted saline lock: 20 gauge in right antecubital area, using aseptic technique. bp Blood collected. 13:17 Chest Pa And Lat (2 Views) XRAY In Process Unspecified. EDMS 15:44 No provider procedures requiring assistance completed. IV discontinued. bp Administered Medications: 13:26 Drug: AtroVENT (ipratropium) Aerosol 0.5 mg Route: Inhalation; ko1 13:27 Drug: Albuterol 2.5 mg Route: Inhalation; ko1 13:27 Drug: NS 0.9% 1000 ml Route: IV; Rate: 1 bolus; Site: right antecubital; ko1 15:46 Follow up: IV Status: Completed infusion; IV Intake: 1000ml bp 13:27 Drug: Decadron - Dexamethasone 10 mg Route: IVP; Site: right antecubital; ko1 15:46 Follow up: Response: No adverse reaction bp 13:27 Drug: Magnesium Sulfate 1 grams Route: IVPB; Infused Over: 1 hrs; Site: right ko1 antecubital; 15:46 Follow up: IV Status: Completed infusion; IV Intake: 100ml bp 13:30 Drug: Tussionex Pennkinetic ER (chlorpheniramine-hydrocodone) Suspension 5 ml Route: PO;ko1 15:46 Follow up: Response: No adverse reaction bp 14:30 Drug: Lidocaine (1 %) 2 ml Volume: 5 ml; Route: Infiltration; ko1 Medication: 13:00 VIS not applicable for this client. bp Intake: 15:46 IV: 1000ml; Total: 1000ml. bp 15:46 IV: 100ml; Total: 1100ml. bp Outcome: 15:31 Discharge ordered by MD. snw 15:44 Discharged to home ambulatory. bp 15:44 Condition: stable 15:44 Discharge instructions given to patient, Instructed on discharge instructions, follow up and referral plans. medication usage, Demonstrated understanding of instructions, follow-up care, medications, Prescriptions given X 5 15:47 Patient left the ED. bp Signatures: Dispatcher [employer] EDMS Daniela Miranda, ZONING ADMINISTRATOR-C ZONING ADMINISTRATOR-Csnw Marie Pena, RN RN Pam Garcia Brian, RN RN bp Imani Peñaloza RN RN ko1
--- NOTE | 2022-01-25 15:32 | EDPHYS ---
Physician Documentation [facility] Name: Chantal Piña Age: 52 yrs Sex: Female : 1970 Arrival Date: 01/25/2022 Time: 12:13 Bed 26 Private MD: ED Physician Julio Cesar Rodriguez HPI: 01/25 13:22 This 52 yrs old Female presents to ER via Ambulatory with complaints of Breathing snw Difficulty. 13:22 The patient has shortness of breath at rest. Onset: The symptoms/episode began/occurred snw suddenly, 1 week(s) ago, and became worse 2 day(s) ago. Duration: The symptoms are continuous. Associated signs and symptoms: The patient has no apparent associated signs or symptoms. Severity of symptoms: At their worst the symptoms were moderate. The patient has not experienced similar symptoms in the past. The patient has not recently seen a physician. Historical: - Allergies: 12:52 PENICILLINS; iw 12:52 Cipro PO; iw - Immunization history:: Adult Immunizations up to date. - Social history:: Smoking status: unknown. ROS: 13:21 Eyes: Negative for injury, pain, redness, and discharge, ENT: Negative for injury, snw pain, and discharge, Neck: Negative for injury, pain, and swelling, Cardiovascular: Negative for chest pain, palpitations, and edema. 13:21 Abdomen/GI: Negative for abdominal pain, nausea, vomiting, diarrhea, and constipation, Back: Negative for injury and pain, : Negative for injury, bleeding, discharge, and swelling, MS/Extremity: Negative for injury and deformity, Skin: Negative for injury, rash, and discoloration, Neuro: Negative for headache, weakness, numbness, tingling, and seizure, Psych: Negative for depression, anxiety, suicide ideation, homicidal ideation, and hallucinations. 13:21 Constitutional: Positive for fatigue, malaise. 13:21 Respiratory: Positive for cough, shortness of breath. Exam: 13:20 Abdomen/GI: Soft, non-tender, with normal bowel sounds. No distension or tympany. No snw guarding or rebound. No evidence of tenderness throughout. Back: No spinal tenderness. No costovertebral tenderness. Full range of motion. Skin: Warm, dry with normal turgor. Normal color with no rashes, no lesions, and no evidence of cellulitis. MS/ Extremity: Pulses equal, no cyanosis. Neurovascular intact. Full, normal range of motion. Neuro: Awake and alert, GCS 15, oriented to person, place, time, and situation. Cranial nerves II-XII grossly intact. Motor strength 5/5 in all extremities. Sensory grossly intact. Cerebellar exam normal. Normal gait. 13:20 Head/Face: Normocephalic, atraumatic. Eyes: Pupils equal round and reactive to light, extra-ocular motions intact. Lids and lashes normal. Conjunctiva and sclera are non-icteric and not injected. Cornea within normal limits. Periorbital areas with no swelling, redness, or edema. ENT: Nares patent. No nasal discharge, no septal abnormalities noted. Tympanic membranes are normal and external auditory canals are clear. Oropharynx with no redness, swelling, or masses, exudates, or evidence of obstruction, uvula midline. Mucous membranes moist. Neck: Trachea midline, no thyromegaly or masses palpated, and no cervical lymphadenopathy. Supple, full range of motion without nuchal rigidity, or vertebral point tenderness. No Meningismus. Chest/axilla: Normal chest wall appearance and motion. Nontender with no deformity. No lesions are appreciated. Cardiovascular: Tachycardic rate and rhythm with a normal S1 and S2. No gallops, murmurs, or rubs. Normal PMI, no JVD. No pulse deficits. 13:20 Constitutional: The patient appears alert, awake, restless, uncomfortable. 13:20 Respiratory: mild respiratory distress is noted, Respirations: shallow respirations, tachypnea, Breath sounds: + upper airway congestion. wheezing: expiratory that is severe, is heard diffusely. Vital Signs: 12:51 BP 110 / 61; Pulse 74; Resp 20; Temp 98.1; Pulse Ox 97% on R/A; Weight 77.11 kg; Height iw 5 ft. 1 in. (154.94 cm); 13:57 BP 114 / 68; Pulse 82; Resp 20; Pulse Ox 100% on Nebulizer Mask; ko1 15:25 BP 140 / 86; Pulse 82; Resp 20; Pulse Ox 94% ; bp 12:51 Body Mass Index 32.12 (77.11 kg, 154.94 cm) iw MDM: 12:54 Patient medically screened. snw 15:29 Data reviewed: vital signs, nurses notes. Data interpreted: Pulse oximetry: on room air snw is 94 %. Interpretation: acceptable, Plan: will initiate a nebulizer treatment. Counseling: I had a detailed discussion with the patient and/or guardian regarding: the historical points, exam findings, and any diagnostic results supporting the discharge/admit diagnosis, the presence of at least one elevated blood pressure reading (>120/80) during this emergency department visit, radiology results, the need for outpatient follow up, to return to the emergency department if symptoms worsen or persist or if there are any questions or concerns that arise at home. Response to treatment: the patient's symptoms have mildly improved after treatment, the patient's symptoms have markedly improved after treatment. Special discussion: Based on the history and exam findings, there is no indication for further emergent testing or inpatient evaluation. I discussed with the patient/guardian the need to see the primary care provider for further evaluation of the symptoms. I discussed with the patient/guardian the need to see the patient service rep for further evaluation of the symptoms. 01/25 12:54 Order name: COVID-19/FLU A+B/RSV; Complete Time: 13:53 snw 01/25 12:59 Order name: Chest Pa And Lat (2 Views) XRAY; Complete Time: 13:39 snw 01/25 14:13 Order name: Misc. Order: lidocaine 2ml in 3ml NS nebulized at 6-8L/min; Complete Time: snw 14:27 Administered Medications: 13:26 Drug: AtroVENT (ipratropium) Aerosol 0.5 mg Route: Inhalation; ko1 13:27 Drug: Albuterol 2.5 mg Route: Inhalation; ko1 13:27 Drug: NS 0.9% 1000 ml Route: IV; Rate: 1 bolus; Site: right antecubital; ko1 15:46 Follow up: IV Status: Completed infusion; IV Intake: 1000ml bp 13:27 Drug: Decadron - Dexamethasone 10 mg Route: IVP; Site: right antecubital; ko1 15:46 Follow up: Response: No adverse reaction bp 13:27 Drug: Magnesium Sulfate 1 grams Route: IVPB; Infused Over: 1 hrs; Site: right ko1 antecubital; 15:46 Follow up: IV Status: Completed infusion; IV Intake: 100ml bp 13:30 Drug: Tussionex Pennkinetic ER (chlorpheniramine-hydrocodone) Suspension 5 ml Route: PO;ko1 15:46 Follow up: Response: No adverse reaction bp 14:30 Drug: Lidocaine (1 %) 2 ml Volume: 5 ml; Route: Infiltration; ko1 Disposition: 17:29 Co-signature as Attending Physician, Julio Cesar Rodriguez MD I agree with the assessment and rt plan of care. Disposition Summary: 01/25/22 15:31 Discharge Ordered Location: Home snw Condition: Stable snw Diagnosis - Cough snw - Wheezing snw Followup: snw - With: Emergency Department - When: As needed - Reason: Worsening of condition Followup: snw - With: Private Physician - When: 2 - 3 days - Reason: Recheck today's complaints, Continuance of care, Re-evaluation by your physician Discharge Instructions: - Discharge Summary Sheet snw - Cool Mist Vaporizer snw - Cough, Adult snw Forms: - Medication Reconciliation Form snw - Thank You Letter snw - Antibiotic Education snw - Prescription Opioid Use snw - Work release form iw Prescriptions: - Zyrtec 10 mg Oral Tablet - take 1 tablet by ORAL route once daily As needed; 20 tablet; Refills: 0, snw Product Selection Permitted - Prednisone 20 mg Oral Tablet - take 2 tablets by ORAL route once daily for 5 days; 10 tablet; Refills: 0, snw Product Selection Permitted - Pepcid 20 mg Oral Tablet - take 1 tablet by ORAL route once daily; 20 tablet; Refills: 0, Product snw Selection Permitted - Tylenol-Codeine #3 300 mg-30 mg Oral - take 1 tablet by ORAL route 3 times per day; 12 tablet; Refills: 0, Product snw Selection Permitted Signatures: Dispatcher [employer] EDMS Daniela Miranda, RADIO BROADCASTER-C RADIO BROADCASTER-Csnw Marie Pena RN RN iw Rajeev Garrido RN RN bp Oliver, Kathy, RN RN ko1 Julio Cesar Rodriguez MD MD rt Corrections: (The following items were deleted from the chart) 13:22 13:20 Head/Face: Normocephalic, atraumatic. Eyes: Pupils equal round and reactive to snw light, extra-ocular motions intact. Lids and lashes normal. Conjunctiva and sclera are non-icteric and not injected. Cornea within normal limits. Periorbital areas with no swelling, redness, or edema. ENT: Nares patent. No nasal discharge, no septal abnormalities noted. Tympanic membranes are normal and external auditory canals are clear. Oropharynx with no redness, swelling, or masses, exudates, or evidence of obstruction, uvula midline. Mucous membranes moist. Neck: Trachea midline, no thyromegaly or masses palpated, and no cervical lymphadenopathy. Supple, full range of motion without nuchal rigidity, or vertebral point tenderness. No Meningismus. Chest/axilla: Normal chest wall appearance and motion. Nontender with no deformity. No lesions are appreciated. Cardiovascular: Regular rate and rhythm with a normal S1 and S2. No gallops, murmurs, or rubs. Normal PMI, no JVD. No pulse deficits. snw
[2022-01-25 21:19] VITALS: TEMP 98.1
[2022-01-25 21:31] VITALS: BP 140/86; O2SAT 94
== END 2022-01-25 15:47 | disposition home or self-care (01) ==
LOC: ER 12:12
DX: R05.9 Cough, unspecified (principal); R06.2 Wheezing; Z20.822 Contact with and (suspected) exposure to COVID-19; Z88.0 Allergy status to penicillin; Z88.1 Allergy status to other antibiotic agents
CPT/HCPCS: 0241U; 71046; 96365; 96366; 96375; 99285; J1100; J2001; J3475; J7030; J7613; J7644

== ENCOUNTER 2023-09-27 19:20 | Emergency (ER) | payer OTHER, SELFPAY ==
--- OUTSIDE RECORDS SUMMARY | 2023-09-27 19:23 | XMS REPORT | Clinical Summary ---
Author Name Unknown Organization [facility] Address [address] [place] [address] Care Team Providers Care Bulk Delivery Driver Name Role Phone Melanie Hays MD Unavailable [email or web address] Social History Tobacco Use Types Packs/Day Years Used Date Smoking Tobacco: Never Assessed Sex and Gender Information Value Date Recorded Sex Assigned at Not on file Gender Identity Not on file Sexual Orientation Not on file Plan of Treatment Not on file Care Teams Bulk Delivery Driver Relationship Specialty Start Date End Date Melanie Hays MD [email or web address] Consulting Physician Preventive Medicine 01/18/21
[2023-09-27] MEDS ORDERED: HYDROCODONE/APAP 5/325 MG TAB ONE (19:38)
[2023-09-27] MEDS ORDERED: LIDOCAINE 1% 20 ML MDV ONE (19:38)
[2023-09-27] MEDS ORDERED: TDAP (DIPHTH,PERTUSS(ACELL),TET VAC) 0.5 ML VIAL IMVAC ONE (19:39)
--- NOTE | 2023-09-27 20:45 | RAD REPORT ---
EXAM DESCRIPTION: RAD - Forearm Right - 09/27/2023 8:37 pm CLINICAL HISTORY: r/o fb COMPARISON: No comparisons FINDINGS/IMPRESSION: No acute fracture. No malalignment. No significant focal degenerative changes. Forearm laceration. No foreign body.
--- NOTE | 2023-09-27 22:32 | EDPHYS ---
Physician Documentation [facility] Name: Chantal Piña Age: 53 yrs Sex: Female : 1970 Arrival Date: 09/27/2023 Time: 19:20 Bed 5 Private MD: ED Physician Polo Ontiveros HPI: 09/26 21:44 This 53 yrs old Female presents to ER via EMS with complaints of Laceration To Arm. 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 States she leaned against a window to look into a room and the glass broke causing the lacerations. . 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 - Infectious Disease History:: Denies. - Social history:: Smoking status: Patient reports the use of cigarette tobacco products, Patient/guardian denies using alcohol, street drugs. ROS: 21:43 Constitutional: As per HPI kb Exam: 21:43 Constitutional: This is a well developed, well nourished patient who is awake, alert, kb and in no acute distress. Head/Face: Normocephalic, atraumatic. ENT: Moist Mucous membranes Cardiovascular: Regular rate Respiratory: Respirations even and unlabored. No increased work of breathing. Talking in full sentences Abdomen/GI: Soft, non-tender. No distention MS/ Extremity: Pulses equal, no cyanosis. Neurovascular intact. Full, normal range of motion. Neuro: Awake and alert, GCS 15, oriented to person, place, time, and situation. Moves all extremities. Normal gait. 21:43 Skin: injury, laceration(s), the wound is approximately 2.5 cm(s), of the left wrist, that can be described as clean, no foreign body, irregular, without bleeding, 22:31 Skin: injury, laceration(s), the second wound is approximately 4 cm(s), of the dorsal kb aspect of right forearm, that can be described as clean, no foreign body, linear, without bleeding, Vital Signs: 19:27 BP 154 / 92; Pulse 75; Resp 18; Temp 98; Pulse Ox 100% ; Weight 63.5 kg; Height 5 ft. 1 bm8 in. ; Pain 7/10; 20:47 BP 170 / 98; Pulse 72; Resp 16; Temp 98; Pulse Ox 96% ; Pain 4/10; bm8 22:09 BP 158 / 88; Pulse 75; Resp 17; Temp 98; Pulse Ox 96% ; Pain 5/10; bm8 22:42 BP 101 / 80; Pulse 75; Resp 18; Temp 98; Pulse Ox 96% ; Pain 3/10; bm8 19:27 Body Mass Index 26.45 (63.50 kg, 154.94 cm) bm8 19:27 Pain Scale: Adult bm8 20:47 Pain Scale: Adult bm8 22:09 Pain Scale: Adult bm8 22:42 Pain Scale: Adult bm8 Navdeep Coma Score: 19:32 Eye Response: spontaneous(4). Motor Response: obeys commands(6). Verbal Response: bm8 oriented(5). Total: 15. 20:47 Eye Response: spontaneous(4). Motor Response: obeys commands(6). Verbal Response: bm8 oriented(5). Total: 15. 22:09 Eye Response: spontaneous(4). Motor Response: obeys commands(6). Verbal Response: bm8 oriented(5). Total: 15. Laceration: 21:43 Wound Repair of 2.5cm ( 1.0in ) subcutaneous laceration to left wrist. Irregularly kb shaped.. Distal neuro/vascular/tendon intact. Anesthesia: Wound infiltrated with 3 mls of 1% lidocaine. Wound prep: Extensive cleansing with hibiclenz by me, Wound irrigation with saline by me. Skin closed with 4 4-0 Prolene using simple sutures and sterile technique. Patient tolerated well. 22:29 Wound Repair of 4cm ( 1.6in ) subcutaneous laceration to dorsal aspect of right kb forearm. Linear shaped.. Distal neuro/vascular/tendon intact. Anesthesia: Wound infiltrated with 3 mls of 1% lidocaine. Wound prep: Extensive cleansing with hibiclenz by me, Wound irrigation with saline by me. Skin closed with 5 4-0 Prolene using simple sutures and sterile technique. Patient tolerated well. MDM: 19:22 Patient medically screened. kb 21:44 Differential diagnosis: superficial laceration, tendon injury, vascular injury. Data kb reviewed: vital signs, nurses notes. Historians other than the Patient: EMS: [facility]. 22:30 Counseling: I had a detailed discussion with the patient and/or guardian regarding the kb historical points, exam findings, and any diagnostic results supporting the discharge/admit diagnosis, radiology results, the need for outpatient follow up, a family practitioner, to return to the emergency department if symptoms worsen or persist or if there are any questions or concerns that arise at home. 09/26 19:28 Order name: Forearm Left XRAY; Complete Time: 20:46 kb 09/26 19:28 Order name: Forearm Right XRAY; Complete Time: 20:46 kb 09/26 19:28 Order name: Dressing - Wound; Complete Time: 19:50 kb 09/26 19:28 Order name: Gloves, Sterile: size 6.0; Complete Time: 19:50 kb 09/26 19:28 Order name: Prolene, Sutures: 4.0; Complete Time: 19:50 kb 09/26 19:28 Order name: Setup Suture Tray; Complete Time: 19:50 kb Administered Medications: 19:50 Drug: Boostrix Tdap IM 0.5 ml IM once; as a single dose Route: IM; Site: right deltoid; bm8 21:01 Follow up: Response: No adverse reaction bm8 19:50 Drug: HYDROcodone-acetaminophen PO 5 mg-325 mg 1 tabs PO once Route: PO; bm8 21:01 Follow up: Response: No adverse reaction bm8 21:39 Drug: Lidocaine Infiltration (1 %) 1 vials 20 ml Infiltration once; to bedside {Note: bm8 by provider.} Volume: 20 ml; Route: Infiltration; 22:42 Follow up: Response: No adverse reaction bm8 Disposition: 23:05 I was immediately available on-site in the Emergency Department for consultation in the ms3 care of the patient. Disposition Summary: 09/27/23 22:30 Discharge Ordered Condition: Stable kb Diagnosis - Laceration without foreign body of left forearm kb - Laceration without foreign body of right forearm kb Followup: kb - With: Emergency Department - When: As needed - Reason: Worsening of condition Followup: kb - With: Private Physician - When: 2 - 3 days - Reason: Recheck today's complaints, Continuance of care, Re-evaluation by your physician Discharge Instructions: - Discharge Summary Sheet kb - Laceration Care, Adult, [id number] kb Forms: - Medication Reconciliation Form kb - Antibiotic Education kb - Prescription Opioid Use kb - Patient Portal Instructions kb - Leadership Thank You Letter kb Signatures: Dispatcher [employer] EDMaria Esther Rodríguez, MOLDER CLOSED MOLDS-C MOLDER CLOSED MOLDS-Polo Wallace DO DO ms3 Jaquan Calix, RN RN bm8
--- NOTE | 2023-09-27 22:32 | ER ---
Nurse's Notes [facility] Name: Chantal Piña Age: 53 yrs Sex: Female : 1970 Arrival Date: 09/27/2023 Time: 19:20 Bed 5 Private MD: Diagnosis: Laceration without foreign body of left forearm;Laceration without foreign body of right forearm Presentation: 09/26 19:27 Chief complaint: Patient states: i was pushing through a window and it shattered on me. bm8 I have one cut on each arm. Coronavirus screen: At this time, the client does not indicate any symptoms associated with coronavirus-19. Ebola Screen: Patient negative for fever greater than or equal to 101.5 degrees Fahrenheit, and additional compatible Ebola Virus Disease symptoms Patient denies exposure to infectious person. Patient denies travel to an Ebola-affected area in the 21 days before illness onset. No symptoms or risks identified at this time. Complicating Factors: Glass or an other foreign body is present in the wound. Initial Sepsis Screen: Does the patient meet any 2 criteria? No. Patient's initial sepsis screen is negative. Does the patient have a suspected source of infection? No. Patient's initial sepsis screen is negative. Risk Assessment: Do you want to hurt yourself or someone else? Patient reports no desire to harm self or others. Onset of symptoms was September 27, 2023 at 17:00. 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 19:27 Method Of Arrival: EMS: [facility] 19:27 Acuity: NIKI 3 bm8 Triage Assessment: 19:29 General: Appears distressed, uncomfortable, Behavior is cooperative, anxious. Pain: bm8 Complains of pain in right arm and left arm Pain does not radiate. Pain currently is 7 out of 10 on a pain scale. Quality of pain is described as throbbing. EENT: No deficits noted. No signs and/or symptoms were reported regarding the EENT system. Neuro: No deficits noted. Level of Consciousness is awake, alert, obeys commands, Oriented to person, place, time, situation, Appropriate for age. Cardiovascular: Denies chest pain, Capillary refill < 3 seconds Patient's skin is warm and dry. Respiratory: Airway is patent Respiratory effort is even, unlabored, Respiratory pattern is regular, symmetrical. GI: No signs and/or symptoms were reported involving the gastrointestinal system. : Derm: Wound noted right arm and left arm Wound is lac approx. 1 inch on each side of arm. Musculoskeletal: No signs and/or symptoms reported regarding the musculoskeletal system. Injury Description: Laceration sustained to dorsal aspect of right forearm and left wrist is clean, 0.5 to 2.5 cm long, with pulsatile bleeding, was sustained 1-2 hours ago. is bleeding a small amount. 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 - Infectious Disease History:: Denies. - Social history:: Smoking status: Patient reports the use of cigarette tobacco products, Patient/guardian denies using alcohol, street drugs. Screenin:32 [facility] ED Fall Risk Assessment (Adult) History of falling in the last 3 months, bm8 including since admission No falls in past 3 months (0 pts) Confusion or Disorientation No (0 pts) Intoxicated or Sedated No (0 pts) Impaired Gait No (0 pts) Mobility Assist Device Used No (0 pt) Altered Elimination No (0 pt) Score/Fall Risk Level 0 - 2 = Low Risk Oriented to surroundings, Maintained a safe environment, Educated pt \T\ family on fall prevention, incl call for assistance when getting out of bed, Assessed \T\ reinforced patient's understanding of fall precautions, Hourly rounding (assess needs \T\ fall precautionary measures) done, Used ambulatory aids as needed (educated on \T\ assisted with), Used gait belt as appropriate. Abuse screen: Denies threats or abuse. Nutritional screening: No deficits noted. Tuberculosis screening: No symptoms or risk factors identified. Assessment: 19:32 Reassessment: see triage note. bm8 20:47 Reassessment: Patient appears in no apparent distress at this time. No changes from bm8 previously documented assessment. Patient and/or family updated on plan of care and expected duration. Pain level reassessed. Patient is alert, oriented x 3, equal unlabored respirations, skin warm/dry/pink. Patient states feeling better. Reassessment: pt is resting with eyes closed breathing is even unlabored, easily aroused. pt provided with po fluids. Pain: Pain currently is 4 out of 10 on a pain scale. 22:08 Reassessment: Patient appears in no apparent distress at this time. Patient and/or bm8 family updated on plan of care and expected duration. Pain level reassessed. Patient is alert, oriented x 3, equal unlabored respirations, skin warm/dry/pink. pain improved Patient states feeling better. Vital Signs: 19:27 BP 154 / 92; Pulse 75; Resp 18; Temp 98; Pulse Ox 100% ; Weight 63.5 kg; Height 5 ft. 1 bm8 in. ; Pain 7/10; 20:47 BP 170 / 98; Pulse 72; Resp 16; Temp 98; Pulse Ox 96% ; Pain 4/10; bm8 22:09 BP 158 / 88; Pulse 75; Resp 17; Temp 98; Pulse Ox 96% ; Pain 5/10; bm8 22:42 BP 101 / 80; Pulse 75; Resp 18; Temp 98; Pulse Ox 96% ; Pain 3/10; bm8 19:27 Body Mass Index 26.45 (63.50 kg, 154.94 cm) bm8 19:27 Pain Scale: Adult bm8 20:47 Pain Scale: Adult bm8 22:09 Pain Scale: Adult bm8 22:42 Pain Scale: Adult bm8 Navdeep Coma Score: 19:32 Eye Response: spontaneous(4). Motor Response: obeys commands(6). Verbal Response: bm8 oriented(5). Total: 15. 20:47 Eye Response: spontaneous(4). Motor Response: obeys commands(6). Verbal Response: bm8 oriented(5). Total: 15. 22:09 Eye Response: spontaneous(4). Motor Response: obeys commands(6). Verbal Response: bm8 oriented(5). Total: 15. ED Course: 19:21 Patient arrived in ED. jj6 19:22 Maria Esther Miller FNP-C [facility]. kb 19:22 Polo Ontiveros DO is Attending Physician. kb 19:27 Jaquan Calix, RN is Primary Nurse. bm8 19:29 Triage completed. bm8 19:29 Arm band placed on right wrist. bm8 19:32 Patient has correct armband on for positive identification. Bed in low position. Call bm8 light in reach. Side rails up X 1. Client placed on continuous cardiac and pulse oximetry monitoring. NIBP monitoring applied. Pulse ox on. NIBP on. Door closed. Noise minimized. Pillow given. Verbal reassurance given. Head of bed elevated. 19:32 Assist provider with laceration repair on right arm and left hand that was 2.5 cm. or bm8 less using sutures. Set up tray. Performed by Maria Esther BELLO Dressed with 4X4s, Kerlix, Patient tolerated well. Patient did not have IV access during this emergency room visit. 20:39 Forearm Left XRAY In Process Unspecified. EDMS 20:39 Forearm Right XRAY In Process Unspecified. EDMS 22:08 Wound care: to laceration located on left wrist was cleaned with soap and water, bm8 dressed with Neosporin, 4X4s, Kerlix, Patient tolerated well. 22:41 Wound care: to laceration located on right arm was cleaned with soap and water, dressed bm8 with Neosporin, 4X4s, Kerlix, Patient tolerated well. 22:42 Provided Education on: post er care and wound care. bm8 Administered Medications: 19:50 Drug: Boostrix Tdap IM 0.5 ml IM once; as a single dose Route: IM; Site: right deltoid; bm8 21:01 Follow up: Response: No adverse reaction bm8 19:50 Drug: HYDROcodone-acetaminophen PO 5 mg-325 mg 1 tabs PO once Route: PO; bm8 21:01 Follow up: Response: No adverse reaction bm8 21:39 Drug: Lidocaine Infiltration (1 %) 1 vials 20 ml Infiltration once; to bedside {Note: bm8 by provider.} Volume: 20 ml; Route: Infiltration; 22:42 Follow up: Response: No adverse reaction bm8 Medication: 19:32 Vaccine Information Statement (VIS) provided today. Questions and/or concerns bm8 addressed. VIS edition date: September 21, 2020. Outcome: 22:30 Discharge ordered by MD. montiel 22:41 Discharged to home ambulatory, bm8 22:41 Condition: stable 22:41 Discharge instructions given to patient, Instructed on discharge instructions, follow up and referral plans. medication usage, safety practices, wound care, Demonstrated understanding of instructions, follow-up care, medications, 22:43 Patient left the ED. bm8 Signatures: Dispatcher [employer] Maria Esther Chacko, ACE FIGUEROA-Laina [email or web address] Jaquan Calix, RN RN bm8
[2023-09-27 23:22] VITALS: TEMP 98
[2023-09-27 23:24] VITALS: O2SAT 96
[2023-09-27 23:28] VITALS: BP 101/80
== END 2023-09-27 22:43 | disposition home or self-care (01) ==
LOC: ER 19:20
PROC: 0HQEXZZ Repair Left Lower Arm Skin, External Approach (ICD-10-PCS; principal; 2023-09-27)
PROC: 0HQDXZZ Repair Right Lower Arm Skin, External Approach (ICD-10-PCS; 2023-09-27)
DX: S51.812A Laceration without foreign body of left forearm, initial encounter (principal); S51.811A Laceration without foreign body of right forearm, initial encounter
CPT/HCPCS: 96372; 99285; J2001

== ENCOUNTER 2024-03-08 18:34 | Inpatient (IN) | payer SELFPAY ==
--- OUTSIDE RECORDS SUMMARY | 2024-03-08 18:37 | XMS REPORT | Clinical Summary ---
Author Name Unknown Organization [facility] Address [address] [place] [address] Care Team Providers Care Black Top Paver Operator Name Role Phone Melanie Hays MD Unavailable [email or web address] Social History Tobacco Use Types Packs/Day Years Used Date Smoking Tobacco: Never Assessed Comments Unknown Sex and Gender Information Value Date Recorded Sex Assigned at Not on file Legal Sex Female 10:42 AM [employer] Gender Identity Not on file Sexual Orientation Not on file Plan of Treatment Not on file Care Teams Black Top Paver Operator Relationship Specialty Start Date End Date Melanie Hays MD [email or web address] Consulting Physician Preventive Medicine 01/18/21
[2024-03-08 18:57] LABS: Absolute Basophils 0.2 K/uL (0-0.5); Absolute Eosinophils 0.2 K/uL (0-0.5); Absolute Lymphocytes (CBC) 3.1 K/uL (0.7-4.9); Basophils % 1.2 % (0-1.3); Eosinophils % 1.3 % (0-4.4); Hematocrit 43.4 % (36.0-45.0); Hemoglobin 14.3 g/dL (12.0-15.0); Lymphocytes % 18.7 % (15.3-44.8); MCH 26.9 pg (27.0-35.0); MCHC 32.9 g/dL (32.0-36.0); MCV 81.8 fL (80-100); MPV 7.9 fL (7.6-11.3); Monocytes % 5.9 % (3.3-12.3); Neutrophils % 72.9 % (41.7-73.7); Platelets 428 thou/uL (152-406); RBC Red Blood Cell Count 5.31 M/uL (3.86-4.86); Red Cell Distribution Width 13.3 % (12.1-15.2)
[2024-03-08] MEDS ORDERED: MORPHINE 4 MG/ML SYR ONE ×2 (18:58→20:50)
[2024-03-08] MEDS ORDERED: ONDANSETRON 4 MG/2 ML VIAL ONE ×2 (18:58→20:50)
[2024-03-08 19:02] LABS: PT Prothrombin Time 10.6 SECONDS (9.4-12.5); Protime INR 1.01
[2024-03-08 19:16] LABS: Anion Gap 8.6 mEq/L (5.0-15.0); Potassium 4.6 mEq/L (3.5-5.1); Troponin High Sensitivity 10.7 pg/mL (<58.9)
--- NOTE | 2024-03-08 19:29 | RAD REPORT ---
EXAM: Chest Single View HISTORY: CHEST PAIN COMPARISON: 01/25/2022 FINDINGS: LUNGS/PLEURA: The lungs are clear. No pleural effusions or pneumothorax. No pulmonary edema. MEDIASTINUM: The mediastinal silhouette is within normal limits. CARDIAC: The cardiac silhouette is within normal limits. UPPER ABDOMEN: No significant abnormality. BONES: No acute abnormality. LINES/TUBES/OTHER: N/A IMPRESSION: No evidence of acute cardiopulmonary disease.
--- NOTE | 2024-03-08 19:55 | RAD REPORT ---
EXAM: Angio Aorta For Dissection CLINICAL INDICATION: Female, 54 years TONED OUT FOR BACK PAIN THAT RADIATES AROUND TO THE CHEST. TECHNIQUE: CTA of the aorta was obtained including the chest, abdomen and pelvis, with IV contrast, a s per department protocol. Axial, sagittal and coronal reconstructions were obtained. Post-processing was applied at the acquisition scanner with concurrent physician supervision which in cludes 3D reconstructions, MIPs, volume rendered images and/or shaded surface rendering. One or more of the following dose reduction techniques were used: Automated exposure control, adjustment of the mA and/or kV according to the patient size, and/or iterative reconstruction. Unless otherwise specified, incidental findings do not require dedicated imaging follow-up. [id number]. COMPARISON: No prior exam. FINDINGS: Chest: LOWER NECK: Visualized thyroid gland and soft tissues are normal. LUNGS AND AIRWAYS: Airways are clear. No evidence of airspace or interstitial process.No suspicious a nd/or stable pulmonary nodules. PLEURA: No pleural effusion. No pneumothorax. Hemidiaphragms are normally positioned. MEDIASTINUM AND LYMPH NODES: No mediastinal mass or fluid collection. Normal size mediastinal, hilar, and axillary lymph nodes. THORACIC AORTA: No thoracic aortic aneurysm. PULMONARY ARTERIES: Caliber is within normal limits. No pulmonary embolus. HEART: Normal heart size. No coronary calcifications.No significant pericardial effusion. Abdomen/Pelvis UPPER GI: No significant abnormality. LIVER: Hepatic steatosis with areas of fatty sparing. GALLBLADDER/BILE DUCTS: Gallbladder wall thickening is present. This is nonspecific. A stone is likel y present near the gallbladder neck.? PANCREAS: No mass, ductal dilation, or durga-pancreatic fluid. SPLEEN: Unremarkable. ADRENALS: No adrenal masses. KIDNEYS AND URETERS: Normal size and contour. No hydronephrosis.Low density and/or too small to lisa cterize renal lesions which are statistically benign. ABDOMINAL AORTA AND OTHER VESSELS: Normal caliber aorta and IVC. PERITONEUM: No abnormal free fluid. No free air. LYMPH NODES: No pathologic lymphadenopathy. ABDOMINAL WALL: No significant abnormality. SMALL BOWEL/COLON: Small bowel has normal course and caliber. No colonic wall thickening or pericolon ic inflammatory changes. URINARY BLADDER: Underdistended but grossly unremarkable. REPRODUCTIVE ORGANS: No pathologic process. MUSCULOSKELETAL: No acute or suspicious osseous abnormality. ADDITIONAL FINDINGS: None. IMPRESSION: No aortic aneurysm or dissection. No pulmonary embolus.. Gallbladder wall thickening with possible noncalcified stone in the region of the gallbladder neck. E velma or mild acute cholecystitis not excluded. Consider right upper quadrant ultrasound.
[2024-03-08 20:23] LABS: Sqamous Epithelial <5 /HPF (None Seen); Urine Bacteria <20 /HPF (<20); Urine Clarity Clear (Clear); Urine Color Yellow (Yellow); Urine Culture Reflex Order NOT NEEDED; Urine Micro Reflex YN NO BILL MICROSCOPIC; Urine WBC <5 /HPF (<5)
[2024-03-08 20:24] LABS: Specific Gravity > 1.030 (1.005-1.030); Urine Bilirubin Negative (Negative); Urine Glucose Negative (Negative); Urine Ketones Negative (Negative)
[2024-03-08 20:25] LABS: Urine Blood Trace (Negative); Urine Nitrite Negative (Negative); Urine Protein Negative (Negative); Urine Urobilinogen Normal (Normal); Urine pH 6.5 (5.0-7.0)
[2024-03-08 20:28] LABS: Barbiturates NEGATIVE (NEGATIVE); Benzodiazepines NEGATIVE (NEGATIVE); Cocaine POSITIVE (NEGATIVE); METHAMPHETAM NEGATIVE (NEGATIVE); Methadone NEGATIVE (NEGATIVE); Opiates POSITIVE (NEGATIVE); Phencyclidine NEGATIVE (NEGATIVE); THC Cannibis NEGATIVE (NEGATIVE)
--- NOTE | 2024-03-08 20:40 | RAD REPORT ---
Abdomen Exam Limited: 03/08/2024 7:05 PM CLINICAL HISTORY: eval for ruq pathology STUDY: Limited right upper quadrant ultrasound of abdomen. COMPARISON: Same day CT FINDINGS: Liver: Limited evaluation but grossly unremarkable. Bile ducts: No intrahepatic or extrahepatic biliary ductal dilatation. Common bile duct measures 5 mm. Gallbladder: Gallstone present at the gallbladder neck. Gallbladder wall is thickened measuring 5 mm. Trace pericholecystic fluid. A sonographic Landa sign was reported. IMPRESSION: Sonographic findings compatible with acute cholecystitis.
[2024-03-08] MEDS ORDERED: CEFTRIAXONE 1000 MG/VIAL ONE (20:50)
[2024-03-08] MEDS ORDERED: NA CHLORIDE 0.9% 1,000 ML ONE (20:51)
[2024-03-08] MEDS ORDERED: METRONIDAZOLE 500mg IVPB 500 MG/100 ML BAG IV ONE (20:51)
[2024-03-08 21:05] LABS: ALT/SGPT 38 U/L (13-56); AST/SGOT 14 U/L (15-37); Albumin 3.2 g/dL (3.4-5.0); Albumin/Globulin Ratio 0.9 (1.1-1.8); Alkaline Phosphatase 82 U/L (45-117); Globulin 3.7 g/dL (2.3-3.5); Protein, Total 6.9 g/dL (6.4-8.2)
[2024-03-08 21:06] LABS: Bilirubin Direct < 0.2 mg/dL (0-0.2); Bilirubin Total < 0.2 mg/dL (0.2-1.0)
--- NOTE | 2024-03-08 21:13 | ER ---
Nurse's Notes [facility] Name: Chantal Piña Age: 54 yrs Sex: Female : 1970 Arrival Date: 03/08/2024 Time: 18:34 Bed 14 Private MD: Diagnosis: Acute cholecystitis;Cholelithiasis with acute cholecystitis Presentation: 03/08 18:37 Chief complaint: EMS states: toned out for back pain that radiates around to the chest me1 10/10. Given nitro x3 and nitro paste. Pain decreased to 8/10. 20g LAC. Coronavirus screen: Vaccine status: Patient reports receiving the 2nd dose of the covid vaccine. Ebola Screen: No symptoms or risks identified at this time. Initial Sepsis Screen: Does the patient meet any 2 criteria? No. Patient's initial sepsis screen is negative. Does the patient have a suspected source of infection? No. Patient's initial sepsis screen is negative. Risk Assessment: Do you want to hurt yourself or someone else? Patient reports no desire to harm self or others. Onset of symptoms was March 08, 2024 at 18:00. 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 Pain: Complains of pain in left low back and right low back Pain radiates to chest Pain currently is 8 out of 10 on a pain scale. at worst was 10 out of 10 on a pain scale. Quality of pain is described as sharp, shooting, Pain began suddenly, Is continuous. EENT: No signs and/or symptoms were reported regarding the EENT system. Neuro: Level of Consciousness is awake, alert, obeys commands, Oriented to person, place, time, situation, Appropriate for age. Cardiovascular: Patient's skin is warm and dry. Respiratory: Airway is patent Respiratory effort is even, unlabored, Respiratory pattern is regular, symmetrical. GI: No signs and/or symptoms were reported involving the gastrointestinal system. : No signs and/or symptoms were reported regarding the genitourinary system. Derm: Skin is intact, is healthy with good turgor, Skin is pink, warm \T\ dry. Musculoskeletal: Circulation, motion, and sensation intact. Range of motion: intact in all extremities, Reports pain in back and chest. BRUSH SANDER: 18:40 LMP N/A - Post-menopause, Not me1 Historical: - Allergies: 18:40 PENICILLINS; me1 - PMHx: 18:40 Hypertensive disorder; me1 - PSHx: 18:40 Ligation of fallopian tube; me1 - Immunization history:: Adult Immunizations up to date. - Infectious Disease History:: Denies. - Social history:: Smoking status: Patient reports the use of cigarette tobacco products, smokes one pack cigarettes per day. - Family history:: not pertinent. Screenin:43 [facility] ED Fall Risk Assessment (Adult) History of falling in the last 3 months, me1 including since admission No falls in past 3 months (0 pts) Confusion or Disorientation No (0 pts) Intoxicated or Sedated No (0 pts) Impaired Gait No (0 pts) Mobility Assist Device Used No (0 pt) Altered Elimination No (0 pt) Score/Fall Risk Level 0 - 2 = Low Risk Maintained a safe environment, Provided non-skid footwear, Hourly rounding (assess needs \T\ fall precautionary measures) done. Abuse screen: Denies threats or abuse. Nutritional screening: No deficits noted. Tuberculosis screening: No symptoms or risk factors identified. Assessment: 18:43 Reassessment: See triage assessment. me1 Vital Signs: 18:37 BP 173 / 107; Pulse 75; Resp 17; Temp 98.2; Pulse Ox 98% ; Weight 72.57 kg; Height 5 me1 ft. 1 in. ; Pain 8/10; 19:00 BP 172 / 96; Pulse 74; Resp 16; Pulse Ox 98% ; me1 19:57 Pain 5/10; me1 20:00 BP 134 / 85; Pulse 71; Resp 12; Pulse Ox 97% ; me1 21:00 BP 148 / 87; Pulse 66; Resp 16; Pulse Ox 99% ; me1 22:00 BP 126 / 79; Pulse 66; Resp 9; Pulse Ox 97% ; me1 23:00 BP 127 / 86; Pulse 64; Resp 9; Pulse Ox 95% ; me1 18:37 Body Mass Index 30.23 (72.57 kg, 154.94 cm) me1 18:37 Pain Scale: Adult me1 19:57 Pain Scale: Adult me1 Navdeep Coma Score: 21:08 Eye Response: spontaneous(4). Motor Response: obeys commands(6). Verbal Response: sp4 oriented(5). Total: 15. ED Course: 18:36 Patient arrived in ED. ec2 18:37 Rex Garcia MD is Attending Physician. ec2 18:37 Rosaura Razo, JAYCEE is Primary Nurse. me1 18:40 Triage completed. me1 18:40 Radiology exam delayed due to IV insertion attempt and/or patient not having nj appropriate IV at this time. 18:40 Arm band placed on Patient placed in an exam room. me1 18:43 Patient has correct armband on for positive identification. Bed in low position. Call me1 light in reach. Side rails up X2. Provided Education on: POC. Verbalized understanding.. Client placed on continuous cardiac and pulse oximetry monitoring. NIBP monitoring applied. property assessment monitor on. Pulse ox on. NIBP on. 18:43 No provider procedures requiring assistance completed. Maintain EMS IV. Dressing me1 intact. Good blood return noted. Site clean \T\ dry. Gauge \T\ site: 20g LAC. Flushed with 10 mL NS. 18:51 Radiology exam delayed due to lab results not completed at this time. (BUN/Creatinine). nj 18:51 Basic Metabolic Panel Sent. bc6 18:51 CBC with Diff Sent. bc6 18:51 NT PRO-BNP Sent. bc6 18:51 PT-INR Sent. bc6 18:51 Troponin HS Sent. bc6 19:13 EKG done, by ED staff, reviewed by Rex Garcia MD. oe 19:26 XRAY Chest (1 view) In Process Unspecified. EDMS 19:43 Angio Aorta For Dissection In Process Unspecified. EDMS 20:01 Attending Physician role handed off by Rex Garcia MD ec2 20:01 Jose Antonio Jama MD is Attending Physician. ec2 20:16 UAM Sent. lg3 20:16 UDS Sent. lg3 20:16 Urine collected: clean catch specimen, clear. lg3 20:29 Abdomen Limited US In Process Unspecified. EDMS 21:11 Alvaro Armas MD is Hospitalizing Provider. sp4 23:16 Patient admitted, IV remains in place. me1 Administered Medications: 19:08 Drug: morphine IVP or IV 4 mg IVP once over 4 mins Route: IVP; Infused Over: 4 mins; me1 Site: left antecubital; 19:57 Follow up: Pain 5/10 Adult; Response: No adverse reaction; Pain is decreased me1 19:08 Drug: Ondansetron IVP 4 mg IVP once; over 2 minutes Route: IVP; Site: left antecubital; me1 19:56 Follow up: Response: No adverse reaction; Nausea is decreased me1 21:02 Drug: metroNIDAZOLE IVPB 500 mg 100 ml IVPB at 200 ml/hr once over 30 mins Volume: 100 me1 ml; Route: IVPB; Rate: 200 ml/hr; Infused Over: 30 mins; Site: left antecubital; 21:32 Follow up: Response: No adverse reaction; IV Status: Completed infusion; IV Intake: me1 100ml 21:02 Drug: NS 0.9% IV 1000 ml IV at 125 ml/hr Per protocol; to be given as a bolus over 60 me1 minutes Route: IV; Rate: 125 ml/hr; Site: left antecubital; 23:15 Follow up: IV Status: Completed infusion; Infusion continued upon admission me1 21:03 Drug: Rocephin - Rocephin (cefTRIAXone) IVPB 1 grams IVPB once over 30 mins; (mix in 50 me1 mL NS) Route: IVPB; Infused Over: 30 mins; Site: left antecubital; 23:15 Follow up: Response: No adverse reaction; IV Status: Completed infusion me1 21:10 Drug: Ondansetron IVP 4 mg IVP once; over 2 minutes Route: IVP; Site: left antecubital; me1 23:15 Follow up: Response: No adverse reaction; Nausea is decreased me1 21:10 Drug: morphine IVP or IV 4 mg IVP once over 4 mins Route: IVP; Infused Over: 4 mins; me1 Site: left antecubital; 23:15 Follow up: Response: No adverse reaction; Pain is decreased me1 Medication: 18:43 VIS not applicable for this client. me1 Intake: 21:32 IV: 100ml; Total: 100ml. me1 Outcome: 21:12 Decision to Hospitalize by Provider. sp4 23:16 Admitted to ER Hold. Please see [facility] for further documentation. me1 23:16 Condition: stable 23:16 Instructed on the need for admit, 03/09 10:19 Admitted to OR accompanied by nurse, via wheelchair, Report called to Tyra Bains RN cm10 10:20 Patient left the ED. cm10 Signatures: Dispatcher [employer] EDMS Kunal Richards [place] oe Able, Lacie, RN RN lg3 Lupe Ledezma6 Jose Antonio Jama MD MD sp4 Heaven Wilkins RN RN cm10 Rosaura Razo RN RN me1 Rex Garcia MD MD ec2
--- NOTE | 2024-03-08 21:13 | EDPHYS ---
Physician Documentation [facility] Name: Chantal Piña Age: 54 yrs Sex: Female : 1970 Arrival Date: 03/08/2024 Time: 18:34 Bed 14 Private MD: ED Physician Jose Antonio Jama HPI: 03/08 19:14 This 54 yrs old Female presents to ER via EMS with complaints of Back Pain, Chest Pain. ec2 19:14 Patient arrives today for evaluation of back and chest pain. Reports that she initially ec2 had low back pain, migrated up the back and is not having chest pain as well. Reports history of hypertension that is poorly controlled, has been previously prescribed however has not been taking blood pressure medications.. 20:52 Patient's medications include acetaminophen codeine, aripiprazole 10 mg daily, sp4 cyclobenzaprine will take milligram as needed, Robitussin DM as needed, escitalopram 10 mg daily, lisinopril 5 mg daily, Naprosyn as needed, patient states in the past several weeks she has been in and out of the hospital for pains associated with chest and abdomen, patient has history of apparently bipolar disorder, patient's care was assumed from Dr. Garcia at 8 PM.. 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 - Infectious Disease History:: Denies. - Social history:: Smoking status: Patient reports the use of cigarette tobacco products, smokes one pack cigarettes per day. - Family history:: not pertinent. ROS: 19:14 Constitutional: as per hpi ec2 21:08 All other systems are negative, sp4 Exam: 19:14 Constitutional: GEN: NAD Head: atraumatic Eyes: EOMI Ears: External ears are ec2 normal. CV: regular rate LUNGS: no respiratory distress, no wheezes or rales or rhonchi ABD: non-distended SKIN: no evidence of rashes MSK: no evidence of trauma 21:08 Constitutional: This is a well developed, well nourished patient who is awake, alert, sp4 and in no acute distress. Head/Face: Normocephalic, atraumatic. Eyes: Pupils equal round and reactive to light, extra-ocular motions intact. Lids and lashes normal. Conjunctiva and sclera are not injected. Cornea within normal limits. Periorbital areas with no swelling, redness, or edema. ENT: Nares patent. No nasal discharge, no septal abnormalities noted. Tympanic membranes are normal and external auditory canals are clear. Oropharynx with no redness, swelling, or masses, exudates, or evidence of obstruction, uvula midline. Mucous membranes moist. Neck: Trachea midline, no thyromegaly or masses palpated, and no cervical lymphadenopathy. Supple, full range of motion without nuchal rigidity, or vertebral point tenderness. Chest/axilla: Normal chest wall appearance and motion. Nontender with no deformity. No lesions are appreciated. Cardiovascular: Regular rate and rhythm with a normal S1 and S2. No gallops, murmurs, or rubs. Normal PMI, no JVD. No pulse deficits. Respiratory: Lungs have equal breath sounds bilaterally, clear to auscultation and percussion. No rales, rhonchi or wheezes noted. No increased work of breathing, no retractions or nasal flaring. Abdomen/GI: Soft, with normal bowel sounds. No distension or tympany. No guarding or rebound. Positive upper abdominal tenderness without peritoneal signs Back: No spinal tenderness. No costovertebral tenderness. Skin: Warm, dry with normal turgor. Normal color with no rashes, no lesions, and no evidence of cellulitis. MS/ Extremity: Pulses equal, no cyanosis. Neurovascular intact. Full, normal range of motion. Neuro: Awake and alert, GCS 15, oriented to person, place, time, and situation. Cranial nerves II-XII grossly intact. Motor strength 5/5 in all extremities. Sensory grossly intact. Psych: Awake, alert, with orientation to person, place and time. Behavior, mood, and affect are within normal limits Vital Signs: 18:37 BP 173 / 107; Pulse 75; Resp 17; Temp 98.2; Pulse Ox 98% ; Weight 72.57 kg; Height 5 me1 ft. 1 in. ; Pain 8/10; 19:00 BP 172 / 96; Pulse 74; Resp 16; Pulse Ox 98% ; me1 19:57 Pain 5/10; me1 20:00 BP 134 / 85; Pulse 71; Resp 12; Pulse Ox 97% ; me1 21:00 BP 148 / 87; Pulse 66; Resp 16; Pulse Ox 99% ; me1 22:00 BP 126 / 79; Pulse 66; Resp 9; Pulse Ox 97% ; me1 23:00 BP 127 / 86; Pulse 64; Resp 9; Pulse Ox 95% ; me1 18:37 Body Mass Index 30.23 (72.57 kg, 154.94 cm) me1 18:37 Pain Scale: Adult me1 19:57 Pain Scale: Adult me1 [place] Coma Score: 21:08 Eye Response: spontaneous(4). Motor Response: obeys commands(6). Verbal Response: sp4 oriented(5). Total: 15. MDM: 18:37 Medical Screening Exam initiated ec2 19:14 Data reviewed: vital signs, nurses notes. ED course: Patient arrives today for back and ec2 chest pain. Examination is unrevealing. Will obtain a cardiac workup, CT scan of the chest. Differential diagnosis considered include processes such as ACS, PE, dissection.. 19:15 ED course: EKG independently reviewed and interpreted by me, shows normal sinus rhythm, ec2 rate of 74, no acute ST segment elevations, intervals are nonactionable.. 19:18 ED course: Metabolic profile reassuring. CBC shows leukocytosis. BNP slightly elevated ec2 at 829. Troponin within normal ranges.. 20:01 ED course: Signed patient out to oncoming physician with pending ultrasound.. ec2 20:47 Differential diagnosis: arthritis, Cholelithiasis chronic back pain, Fatigue Fracture. sp4 Consideration of Admission/Observation Patient was admitted/placed on observation. Escalation of care including admission/observation considered. Management of patient was discussed with the following: Hospitalist: Pawel BOTELLO . Devulcanizer Operator: Lio BOTELLO . ED course: Patient has signs of acute cholecystitis based on ultrasound and CAT scan.. 20:49 ED course: EXAM: Angio Aorta For Dissection CLINICAL INDICATION: Female, 54 years TONED sp4 OUT FOR BACK PAIN THAT RADIATES AROUND TO THE CHEST. TECHNIQUE: CTA of the aorta was obtained including the chest, abdomen and pelvis, with IV contrast, as per department protocol. Axial, sagittal and coronal reconstructions were obtained. Post-processing was applied at the acquisition scanner with concurrent physician supervision which includes 3D reconstructions, MIPs, volume rendered images and/or shaded surface rendering. One or more of the following dose reduction techniques were used: Automated exposure control, adjustment of the mA and/or kV according to the patient size, and/or iterative reconstruction. Unless otherwise specified, incidental findings do not require dedicated imaging follow-up. [id number]. COMPARISON: No prior exam. FINDINGS: Chest: LOWER NECK: Visualized thyroid gland and soft tissues are normal. LUNGS AND AIRWAYS: Airways are clear. No evidence of airspace or interstitial process.No suspicious and/or stable pulmonary nodules. PLEURA: No pleural effusion. No pneumothorax. Hemidiaphragms are normally positioned. MEDIASTINUM AND LYMPH NODES: No mediastinal mass or fluid collection. Normal size mediastinal, hilar, and axillary lymph nodes. THORACIC AORTA: No thoracic aortic aneurysm. PULMONARYARTERIES: Caliber is within normal limits. No pulmonary embolus. HEART: Normal heart size. No coronary calcifications.No significant pericardial effusion. Abdomen/Pelvis UPPER GI: No significant abnormality. LIVER: Hepatic steatosis with areas of fatty sparing. GALLBLADDER/BILE DUCTS: Gallbladder wall thickening is present. This is nonspecific. A stone is likely present near the gallbladder neck.? PANCREAS: No mass, ductal dilation, or durga-pancreatic fluid. SPLEEN: Unremarkable. ADRENALS: No adrenal masses. KIDNEYS AND URETERS: Normal size and contour. No hydronephrosis.Low density and/or too small to characterize renal lesions which are statistically benign. ABDOMINAL AORTA AND OTHER VESSELS: Normal caliber aorta and IVC. PERITONEUM: No abnormal free fluid. No free air. LYMPH NODES: No pathologic lymphadenopathy. ABDOMINAL WALL: No significant abnormality. SMALL BOWEL/COLON: Small bowel has normal course and caliber. No colonic wall thickening or pericolonic inflammatory changes. URINARYBLADDER: Underdistended but grossly unremarkable. REPRODUCTIVE ORGANS: No pathologic process. MUSCULOSKELETAL: No acute or suspicious osseous abnormality. ADDITIONAL FINDINGS: None. IMPRESSION: No aortic aneurysm or dissection. No pulmonary embolus.. Gallbladder wall thickening with possible noncalcified stone in the region of the gallbladder neck. Early or mild acute cholecystitis not excluded. Consider right upper quadrant ultrasound. . 03/08 18:38 Order name: Basic Metabolic Panel; Complete Time: 19:17 ec2 03/08 18:38 Order name: CBC with Diff; Complete Time: 19:17 ec2 03/08 18:38 Order name: NT PRO-BNP; Complete Time: 19:17 ec2 03/08 18:38 Order name: PT-INR; Complete Time: 19:17 ec2 03/08 18:38 Order name: Troponin HS; Complete Time: 19:17 ec2 03/08 19:17 Order name: UDS; Complete Time: 20:34 ec2 03/08 19:17 Order name: UAM; Complete Time: 20:34 ec2 03/08 20:44 Order name: LFT's; Complete Time: 21:06 sp4 03/08 20:50 Order name: Lipase; Complete Time: 21:06 sp4 03/08 22:06 Order name: Urinalysis w/ reflexes [facility] 03/08 22:06 Order name: CBC with Automated Diff [facility] 03/08 22:06 Order name: CBC with Automated Diff; Complete Time: 04:54 EDMS 03/08 22:06 Order name: Comprehensive Metabolic Panel [facility] 03/08 22:06 Order name: Comprehensive Metabolic Panel [facility] 03/08 18:38 Order name: XRAY Chest (1 view); Complete Time: 19:33 2 03/08 19:43 Order name: Angio Aorta For Dissection; Complete Time: 19:58 EDMS 03/08 19:59 Order name: Abdomen Limited US; Complete Time: 20:45 ec2 03/08 18:38 Order name: EKG; Complete Time: 18:38 2 03/08 22:06 Order name: CONS Physician Consult [facility] 03/08 18:38 Order name: Cardiac monitoring; Complete Time: 19:55 ec2 03/08 18:38 Order name: EKG - Nurse/Tech; Complete Time: 19:55 ec2 03/08 18:38 Order name: IV Saline Lock; Complete Time: 18:51 ec2 03/08 18:38 Order name: Labs collected and sent; Complete Time: 18:51 ec2 03/08 18:38 Order name: O2 Per Protocol; Complete Time: 19:02 ec2 03/08 18:38 Order name: O2 Sat Monitoring; Complete Time: 19:02 ec2 03/08 20:34 Order name: NPO; Complete Time: 20:47 sp4 Administered Medications: 19:08 Drug: morphine IVP or IV 4 mg IVP once over 4 mins Route: IVP; Infused Over: 4 mins; me1 Site: left antecubital; 19:57 Follow up: Pain 5/10 Adult; Response: No adverse reaction; Pain is decreased me1 19:08 Drug: Ondansetron IVP 4 mg IVP once; over 2 minutes Route: IVP; Site: left antecubital; me1 19:56 Follow up: Response: No adverse reaction; Nausea is decreased me1 21:02 Drug: metroNIDAZOLE IVPB 500 mg 100 ml IVPB at 200 ml/hr once over 30 mins Volume: 100 me1 ml; Route: IVPB; Rate: 200 ml/hr; Infused Over: 30 mins; Site: left antecubital; 21:32 Follow up: Response: No adverse reaction; IV Status: Completed infusion; IV Intake: me1 100ml 21:02 Drug: NS 0.9% IV 1000 ml IV at 125 ml/hr Per protocol; to be given as a bolus over 60 me1 minutes Route: IV; Rate: 125 ml/hr; Site: left antecubital; 23:15 Follow up: IV Status: Completed infusion; Infusion continued upon admission me1 21:03 Drug: Rocephin - Rocephin (cefTRIAXone) IVPB 1 grams IVPB once over 30 mins; (mix in 50 me1 mL NS) Route: IVPB; Infused Over: 30 mins; Site: left antecubital; 23:15 Follow up: Response: No adverse reaction; IV Status: Completed infusion me1 21:10 Drug: Ondansetron IVP 4 mg IVP once; over 2 minutes Route: IVP; Site: left antecubital; me1 23:15 Follow up: Response: No adverse reaction; Nausea is decreased me1 21:10 Drug: morphine IVP or IV 4 mg IVP once over 4 mins Route: IVP; Infused Over: 4 mins; me1 Site: left antecubital; 23:15 Follow up: Response: No adverse reaction; Pain is decreased me1 Disposition Summary: 03/08/24 21:12 Hospitalization Ordered Notes: Hospitalization Status: Observation sp4 Provider: Alvaro Armas sp4 Condition: Stable sp4 Problem: new sp4 Symptoms: have improved sp4 Bed/Room Type: Standard sp4 Location: [facility] ER HOLD(03/08/24 21:16) rv1 Room Assignment: ERHOLD-(03/08/24 21:16) rv1 Diagnosis - Acute cholecystitis sp4 - Cholelithiasis with acute cholecystitis sp4 Forms: - Medication Reconciliation Form sp4 - SBAR form sp4 - Leadership Thank You Letter sp4 Signatures: Dispatcher [employer] EDMS Maura Baez rv1 Jose Antonio Jama MD MD sp4 Rosaura Razo RN RN me1 Rex Garcia MD MD ec2 Corrections: (The following items were deleted from the chart) 19:43 18:38 Dissection W/ Wo Con+CT.RAD.BRZ ordered. [facility] 21:16 21:12 Telemetry/MedSurg (observation) sp4 rv1 21:16 21:12 sp4 rv1
--- NOTE | 2024-03-08 22:01 | P.HP ---
Certification for Inpatient Patient admitted to: Observation With expected LOS: <2 Midnights Practitioner: I am a practitioner with admitting privileges, knowledge of patient current condition, hospital course, and medical plan of care. Services: Services provided to patient in accordance with Admission requirements found in Title 42 Section 412.3 of the Code of Federal Regulations Patient History Date of Service: 03/08/24 Reason for admission: Abdominal Pain History of Present Illness: 54 yrs old Female with past medical history of hypertension came to ER with abdominal pain and chest discomfort which has been going on since 2 days and has been progressively getting worse. Denies any fever or chills. Associated with back pain as well. Denies any nausea vomiting or diarrhea. Patient was assessed in the ER and was diagnosed with cholecystitis and was admitted for further management Allergies Penicillins Allergy (Unverified 10/18/15 12:50) Unknown Cipro PO Allergy (Uncoded 10/18/15 12:50) Unknown Home medications list reviewed: Yes - Past Medical/Surgical History Past Medical History: Reviewed- Non-Contributory -: Hypertension Past Surgical History: Reviewed- Non-Contributory - Family History Family History: Reviewed- Non-Contributory - Social History Smoking Status: Never smoker Review of Systems 10-point ROS is otherwise unremarkable Physical Examination - Vital Signs Temperature: 98.2 F Blood Pressure: 132/72 Pulse: 76 Respirations: 18 Pulse Ox (%): 94 - Physical Exam General: Alert, In no apparent distress, Oriented x3 HEENT: Atraumatic, Normocephalic Neck: Supple, 2+ carotid pulse no bruit Respiratory: Clear to auscultation bilaterally, Normal air movement Cardiovascular: Normal pulses, Regular rate/rhythm, Normal S1 S2 Capillary refill: <2 Seconds Gastrointestinal: Soft and benign, W/out hepatosplenomegaly Musculoskeletal: No clubbing, No swelling Integumentary: No rashes, No breakdown Neurological: Normal gait, Normal speech Lymphatics: No axilla or inguinal lymphadenopathy - Studies Laboratory Data (last 24 hrs) 03/08/24 03/08/24 03/08/24 18:50 18:50 18:50 WBC Hgb Hct Plt Count PT 10.6 INR 1.01 Sodium Potassium BUN Creatinine Glucose Total Bilirubin < 0.2 L AST 14 L ALT 38 Alkaline Phosphatase 82 Lipase 51 03/08/24 03/08/24 18:50 18:50 WBC 16.50 H Hgb 14.3 Hct 43.4 Plt Count 428 H PT INR Sodium 136 Potassium 4.6 BUN 23 H Creatinine 1.01 Glucose 127 H Total Bilirubin AST ALT Alkaline Phosphatase Lipase Assessment and Plan - Plan Acute cholecystitis Pain control IV hydration N.p.o. postmidnight Surgical consult Started on IV antibiotic May need laparoscopic cholecystectomy Hypertension Continue home medications and titrate as needed Substance abuse with cocaine Advised cessation Offered measures GI/DVT prophylaxis Advanced directive full code Discharge Plan: Home Plan to discharge in: 24 Hours - Advance Directives Does patient have a Living Will: No Does patient have a Durable POA for Healthcare: No - Code Status/Comfort Care Code Status: Full Code Time Spent Managing Pts Care (In Minutes): 48
[2024-03-08] MEDS ORDERED: ACETAMINOPHEN 325 MG TABLET PO PRN (22:02)
[2024-03-08] MEDS: NA CHLORIDE 0.9% 1,000 ML IV SCH (22:55)
[2024-03-08 23:06] VITALS: BMI 30.2
[2024-03-09] MEDS ORDERED: PIPERACIL/TAZO 3.375 GM VIAL IV ONE ×2 (02:33→09:58)
[2024-03-09] MEDS ORDERED: NA CHLORIDE 0.9% 100 ML ONE (02:33)
[2024-03-09] MEDS: PIPER TAZO 3.375 GM in NA CHLORIDE 0.9% 100 ML IV SCH (02:36)
[2024-03-09 04:44] LABS: Absolute Eosinophils 0.5 K/uL (0-0.5); Absolute Monocytes 1.1 K/uL (0.1-1.3); Absolute Neutrophil 8.5 K/uL (1.8-8.0); Basophils % 0.2 % (0-1.3); Eosinophils % 3.6 % (0-4.4); Hematocrit 38.4 % (36.0-45.0); Lymphocytes % 28.4 % (15.3-44.8); MCH 27.2 pg (27.0-35.0); MCHC 33.7 g/dL (32.0-36.0); MCV 80.9 fL (80-100); MPV 8.2 fL (7.6-11.3); Monocytes % 7.7 % (3.3-12.3); Neutrophils % 60.1 % (41.7-73.7); Platelets 324 thou/uL (152-406); RBC Red Blood Cell Count 4.75 M/uL (3.86-4.86); Red Cell Distribution Width 13.6 % (12.1-15.2)
[2024-03-09 04:59] LABS: ALT/SGPT 28 U/L (13-56); Albumin 2.7 g/dL (3.4-5.0); Albumin/Globulin Ratio 0.8 (1.1-1.8); Alkaline Phosphatase 65 U/L (45-117); Anion Gap 8.2 mEq/L (5.0-15.0); BUN Blood Urea Nitrogen 20 mg/dL (7-18); Bicarbonate 26 mEq/L (21-32); Globulin 3.2 g/dL (2.3-3.5); Glomerular Filtration Rate 72 ml/min (=/>90); Glucose Level 101 mg/dL (74-106); Potassium 4.2 mEq/L (3.5-5.1); Protein, Total 5.9 g/dL (6.4-8.2); Sodium Level 137 mEq/L (136-145)
[2024-03-09 05:00] LABS: AST/SGOT < 10 U/L (15-37); Bilirubin Total < 0.2 mg/dL (0.2-1.0)
[2024-03-09] MEDS ORDERED: NA CHLORIDE 0.9% 1,000 ML ONE (06:19)
[2024-03-09 10:16] LABS: Specific Gravity > 1.030 (1.005-1.030); Urine Bilirubin NEGATIVE (Negative); Urine Blood Negative (Negative); Urine Clarity Clear (Clear); Urine Color Light-Yellow (Yellow); Urine Glucose NEGATIVE (Negative); Urine Ketones NEGATIVE (Negative); Urine Microscopic Reflex YN NO UMIC; Urine Nitrite NEGATIVE (Negative); Urine Protein NEGATIVE (Negative); Urine Urobilinogen Normal (Normal)
[2024-03-09] MEDS ORDERED: MIDAZOLAM HCL 2 MG/2 ML INJ ONE (10:50)
[2024-03-09] MEDS ORDERED: FENTANYL CITR 100 MCG/2 ML ONE (10:50)
[2024-03-09] MEDS ORDERED: LIDOCAINE 2% MPF 5 ML VIAL ONE (10:51)
[2024-03-09] MEDS ORDERED: propofoL 200 MG/20 ML VIAL IV ONE (10:51)
[2024-03-09] MEDS ORDERED: ONDANSETRON 4 MG/2 ML VIAL ONE (10:54)
[2024-03-09] MEDS ORDERED: KETOROLAC 30 MG/ML INJ ONE (10:54)
[2024-03-09] MEDS ORDERED: dexAMETHasone 10 MG/ML VIAL ONE (10:54)
[2024-03-09] MEDS ORDERED: ROCURONIUM 50 MG/5 ML VIAL IV ONE (10:55)
--- NOTE | 2024-03-09 11:04 | CON ---
Date of Consultation: 03/09/2024 Brief History Of Present Illness: The patient is a 54-year-old woman, who presents with a 4 to 5-wee k history of intermittent right upper quadrant and epigastric abdominal pain with radiation through t o the back. She has had multiple episodes before in the past that overall resolved nonoperatively. She went to ERs and had various treatment for these issues. She has also been on a Medrol Dosepak fo r inflammation of her shoulders and she has a history of injection of steroids into the shoulder dire ctly recently. She just got off her Medrol Dosepak yesterday by her recollection. She notes that th e pain was in the epigastric area, right upper quadrant radiation through to the back. She has had s imilar episodes associated with greasy meals. No sick contacts. No recent travel. No new food expo sure. She does use crack cocaine recreationally few days ago she states in addition to opiates recre ationally as well. Past Medical History: Hypertension. Past Surgical History: . Social History: She smokes crack cocaine regularly. She lives with her mother. She is unemployed. She uses opioids recreationally. She has a positive tobacco use history, positive vaping history, p ositive alcohol history. Allergies: TO PENICILLIN AND CIPRO. Review of Systems: Ten-point review of systems other than HPI, denies. Physical Examination: Vital Signs: Temperature 98.2, blood pressure 132/72, pulse 76, respiration 18, pulse ox was 99% on room air. General: She is awake, alert, oriented. Psychiatric: She is appropriate. Conversive. HEENT: Normocephalic. Sclerae icteric. She has dry membranes in the sclerae. Neck: Supple without JVD. Chest: Normal expansion and excursion. Cardiovascular: Regular rate and rhythm. Pulmonary: Clear auscultation bilaterally. Abdomen: Soft with minimal right upper quadrant tenderness to deep palpation. Negative Landa sign. No rebound or guarding. No focal peritonitis. She continues to have pain with deep palpation of t he right upper quadrant. Extremities: No clubbing, cyanosis, or edema. Skin: Warm and dry. Laboratory Data: Revealed white blood cell count of 16.5, on admission of 14.1, hemoglobin 13.1, hem atocrit 38.4, platelet count was 324. Her PT 10.6, INR 1.01. Sodium 137, potassium 4.2, chloride 10 7, carbon dioxide is 26, BUN 20, creatinine 0.9, glucose 127, on admission at 101, total bilirubin 0. 2, direct is less than 0.2, AST is 14 on admission, ALT 38, now AST less than 10, ALT 28, alkaline ph osphatase is 65, proBNP 829, lipase is 51. Urinalysis shows 5 to 10 red blood cells. Opioid screen is positive. Cocaine screen is positive. She had imaging performed, which included an ultrasound of the right upper quadrant, which was officially read as sonographic finding compatible with acute cho lecystitis. Gallbladder stones present in the gallbladder neck. Gallbladder wall of course thickene d measuring 5 mm. Trace pericholecystic fluid. A sonographic Landa sign was reported. No intrahep atic or extrahepatic biliary ductal dilatation. Common bile duct is 5 mm. She additionally had a CT dissection performed on 03/08/2024, officially read as no aortic aneurysm, dissection, or pulmonary embolus. Gallbladder wall thickening, possible noncalcified stone in the region of the gallbladder n gricel, earlier mild acute cholecystitis not excluded. Assessment And Plan: This is a 54-year-old woman, who comes in with signs and symptoms of acute chol ecystitis. 1.IV fluid hydration. 2.Antibiotic coverage. 3.I have explained the risks, benefits, and alternatives of laparoscopic possible open cholecystecto my with indocyanine green cholangiography, possible catheter cholangiography including, but not limit ed to bleeding, infection, damage to surrounding tissues, injury to bile ducts, intestines, need for further operations, blood clots, heart attack, strokes, other complications in the perioperative durga od, increased risk of perioperative complication due to her history of drug abuse in addition to her use of recent steroids. The patient displayed understanding of the above stated plan and agreed to proceed as rylie cated. CYNTHIA/JAVED Voice ID: [id number] Report ID: [id number]
[2024-03-09] MEDS: LIDOCAINE HCL/EPINEPHRINE 20 ML MDV ONE (11:24)
[2024-03-09] MEDS ORDERED: ESMOLOL HCL 10 ML IV ONE (11:33)
[2024-03-09] MEDS ORDERED: NEOSTIGMINE 1 MG/ML -10 ML VIAL ONE (11:45)
[2024-03-09] MEDS ORDERED: GLYCOPYRROLATE 0.2 MG/ML SYR ONE (11:45)
--- NOTE | 2024-03-09 12:00 | P.OP ---
Preoperative diagnosis: Cholecystitis with Cholelithiasis Postoperative diagnosis: Cholecystitis with Cholelithiasis Primary procedure: Laparoscopic Cholecystectomy with ICG Cholangiography Anesthesia: GETA + Local Estimated blood loss: <20cc Specimen: Gallbladder Findings: Short Cystic Duct, Accessory cystic artery, Complications: None Implants: Dilcia Hemostatic Powder Transferred to: Recovery Room Condition: Good
[2024-03-09] MEDS: Ringers Lactate 1,000 ML IV ONE (12:08)
[2024-03-09] MEDS: NA CHLORIDE 0.9% 100 ML ONE (12:14)
[2024-03-09] MEDS: HYDRALAZINE HCL 20 MG/ML VIAL ONE (12:20)
[2024-03-09] MEDS: HYDROMORPHONE HCL 1 MG/ML INJ ONE (12:35)
[2024-03-09] MEDS: HYDROCODONE/APAP 5/325 MG TAB PO PRN (18:46)
--- NOTE | 2024-03-09 18:58 | OP ---
Date of Procedure: 03/09/2024 Surgeon: Evan Vaca MD, Preoperative Diagnosis: Cholecystitis with cholelithiasis. Postoperative Diagnosis: Cholecystitis with cholelithiasis. Procedure Performed: Laparoscopic cholecystectomy with indocyanine green cholangiography. Anesthesia: General endotracheal plus local with 1% lidocaine. Estimated Blood Loss: 20 cc. Specimen: Gallbladder. Findings: Short cystic duct and accessory cystic artery had minimal bleeding from trocar site. Complications: None. Implants: Dilcia hemostatic powder. Disposition: Patient transferred to recovery room in good condition. Procedure In Detail: After informed consent was obtained, patient was brought to the operating room, prepped and draped in the usual sterile fashion after adequate anesthesia had been achieved. I anes thetized an area of supraumbilical region down to subcutaneous tissues. 5-mm 0-degree optical trocar was introduced without incident or complication. Insufflation was obtained to 15 mmHg, at this time . There was no injury to vital structures upon entry into the abdomen. Two additional trocars were placed, one in the epigastrium and one in the right upper quadrant. Both of these were similarly ane sthetized, sharply incised. A 5 mm trocar was placed under direct visualization without incident or complication. The umbilical trocar was then upsized to a 12 mm under direct visualization without in cident or complication. The patient was positioned head up right-side up position. Ratcheted graspe r was used to grasp patient's gallbladder, placed towards the patient's right shoulder. Dissection c ontinued down to identify 2 structures identifying as both cystic duct and cystic artery. The cystic artery had an accessory branch, at this point. This was skeletonized and a critical view of safety was obtained, at this point. The accessory cystic artery ran in the posterior branch along the hepat ic fossa, but was visualized at this point down to its origin. The hepatic artery was also visualize d and the anatomy was clearly defined at this point. Indocyanine green cholangiography confirmed the anatomic description as described above. After these structures were encircled, a double titanium c lip was placed doubly on the proximal side, and singly on the distal side of both cystic duct and cys tic artery. These structures were then ligated between the Endo del. I then proceeded to take th e gallbladder off the hepatic fossa without incident or complication, placed in EndoCatch bag, remove d through the umbilical trocar and sent it off for pathologic examination. The area was copiously ir rigated. At the end of the procedure, the hepatic bed required additional fulguration along the mid portion of it and down to the proximal aspect of the hepatic fossa. This area was fulgurated. Good hemostasis was achieved. At this point, the area was copiously irrigated and good hemostasis was ach ieved. Indocyanine green cholangiography confirmed no leakage about the end of the procedure. At th is point, I sprayed Dilcia hemostatic powder matrix into the hepatic space to allow for additional he mostatic reinforcement. At this point, the patient presents back in neutral position. The umbilical trocar was removed and the umbilical trocar site was closed using a Facundo-Boom suture passer wi th 0 Vicryl in an interrupted fashion with good approximation of tissues. I then had to fulgurate th is area as well and placed additional suture as there was minimal bleeding from this area. At the en d of the procedure, good hemostasis was achieved with a combination of fulguration and an additional 0 Vicryl suture placed through the Facundo-Boom suture passer with a #1 Vicryl. The area was insp ected. No additional bleeding was appreciated. The abdomen was then desufflated under direct visual ization without incident or complication. Remainder of trocars were removed. All skin incisions wer e then copiously irrigated and closed with a 4-0 Monocryl in a running fashion. Dermabond placed ove r top. The patient tolerated the procedure without incident or complication, transferred to PACU in good condition. All counts were correct at the end of the case. CYNTHIA/ALICIAL Voice ID: [id number] Report ID: [id number]
--- NOTE | 2024-03-09 19:14 | P.PN ---
Subjective Date of Service: 03/09/24 Chief Complaint: Abdominal Pain Status post lap cholecystectomy today. No recorded fever. Physical Examination - Vital Signs Temperature: 97.8 F Blood Pressure: 139/78 Pulse: 86 Respirations: 18 Pulse Ox (%): 96 - Studies Laboratory Data (last 24 hrs) 03/08/24 03/08/24 03/08/24 18:50 18:50 18:50 Sodium 136 Potassium 4.6 BUN 23 H Creatinine 1.01 Glucose 127 H Total Bilirubin < 0.2 L AST 14 L ALT 38 Alkaline Phosphatase 82 Lipase 51 Assessment And Plan - Plan Physical examination General: Alert and oriented x3, NAD, HEENT: Conjunctiva not pale, anicteric sclera Neck: Supple, no elevated JVD Heart: Heart sounds 1 and 2 normal, regular rhythm, normal rate, no pedal edema Lungs: Clear to auscultation bilaterally, adequate breath sounds bilaterally, no rhonchi or crackles. Abdomen: Soft, nondistended, normal bowel sounds. Extremities: No tenderness, no deformity Skin: Normal skin turgor, no rash, no nodules or ulcers. Neuro: No focal motor deficit. Normal speech. Psychiatry: Normal mood, no agitation. Diagnosis Acute cholecystitis Hypertension Polysubstance abuse Acute cholecystitis Status post lap cholecystectomy by Dr. Vaca Monitor LFT IV hydration Continue IV antibiotic Possible discharge in a.m. Hypertension Continue home medications. Polysubstance abuse Toxicology screen is positive for cocaine and opioides Cessation advised DVT prophylaxis: Ambulatory, low risk. Advanced directive full code
[2024-03-09] MEDS: MORPHINE 2 MG/ML SYR IV PRN (20:01)
[2024-03-09] MEDS: GABAPENTIN 300 MG CAP PO SCH (20:02)
[2024-03-09 23:43] VITALS: O2SAT 96
[2024-03-10] MEDS: ONDANSETRON 4 MG/2 ML VIAL IV PRN (01:00)
[2024-03-10 04:45] LABS: Absolute Basophils 0.1 K/uL (0-0.5); Absolute Lymphocytes (CBC) 1.9 K/uL (0.7-4.9); Absolute Neutrophil 17.1 K/uL (1.8-8.0); Basophils % 0.5 % (0-1.3); Eosinophils % 0.1 % (0-4.4); Hematocrit 39.3 % (36.0-45.0); Hemoglobin 12.9 g/dL (12.0-15.0); Lymphocytes % 9.3 % (15.3-44.8); MCH 26.5 pg (27.0-35.0); MCHC 32.9 g/dL (32.0-36.0); MCV 80.6 fL (80-100); MPV 8.6 fL (7.6-11.3); Monocytes % 4.9 % (3.3-12.3); Neutrophils % 85.2 % (41.7-73.7); Platelets 364 thou/uL (152-406); RBC Red Blood Cell Count 4.87 M/uL (3.86-4.86)
[2024-03-10] MEDS: HYDRALAZINE HCL 20 MG/ML VIAL IV PRN (04:48)
[2024-03-10 05:03] LABS: Albumin 2.9 g/dL (3.4-5.0); Albumin/Globulin Ratio 0.9 (1.1-1.8); Anion Gap 7.7 mEq/L (5.0-15.0); Bilirubin Total 0.4 mg/dL (0.2-1.0); Globulin 3.4 g/dL (2.3-3.5); Phosphorus 3.7 mg/dL (2.5-4.9); Potassium 4.7 mEq/L (3.5-5.1); Protein, Total 6.3 g/dL (6.4-8.2)
[2024-03-10 05:17] LABS: Band Neutrophils 15 % (0-1); Blood Morphology Comment NOT SEEN (NOT SEEN); Differential Total Cells Count 100; Lymphocytes 11 % (15-42); Monocytes 6 % (0-10); Platelet Estimate ADEQ; Reactive Lymphocytes 1 %; Segmented Neutrophils 67 % (40-80)
--- NOTE | 2024-03-10 12:59 | EKG ---
Test Date: 2024-03-08 Test Time: 19:08:09 Seismograph Operator: RONNELL MEASUREMENT RESULTS: Intervals: Rate: 74 CA: 132 QRSD: 86 QT: 436 QTc: 483 [place]: P: 53 CA: 132 QRS: 39 T: 75 INTERPRETIVE STATEMENTS: Normal sinus rhythm Nonspecific ST abnormality Prolonged QT Abnormal ECG No previous ECG available for comparison Electronically Signed On 03-10-24 12:58:12 BULK COOLERS INSTALLER by Jovany Maria
--- NOTE | 2024-03-10 16:20 | P.PN ---
Subjective Date of Service: 03/10/24 Chief Complaint: Abdominal Pain Patient states she feels better today with less pain No recorded fever. WBC, LFTs trended up. Physical Examination - Vital Signs Temperature: 97.7 F Blood Pressure: 150/72 Pulse: 82 Respirations: 18 Pulse Ox (%): 95 Assessment And Plan - Plan Physical examination General: Alert and oriented x3, NAD, HEENT: Conjunctiva not pale, anicteric sclera Neck: Supple, no elevated JVD Heart: Heart sounds 1 and 2 normal, regular rhythm, normal rate, no pedal edema Lungs: Clear to auscultation bilaterally, adequate breath sounds bilaterally, no rhonchi or crackles. Abdomen: Soft, nondistended, normal bowel sounds. Clean trocar wounds. Extremities: No tenderness, no deformity Skin: Normal skin turgor, no rash, no nodules or ulcers. Neuro: No focal motor deficit. Normal speech. Psychiatry: Normal mood, no agitation. Diagnosis Acute cholecystitis Hypertension Polysubstance abuse Acute cholecystitis Status post lap cholecystectomy by Dr. Vaca LFT trended up Continue IV hydration Continue IV Zosyn. Trend LFT and CBC General surgery Dr. Vaca service following. Diet advanced to soft consistency. Analgesics as needed. Hypertension Continue home medications. Hydralazine prn for BP spikes. Polysubstance abuse Toxicology screen is positive for cocaine and opioides Cessation advised DVT prophylaxis: Lovenox Advanced directive full code
[2024-03-10] MEDS: ENOXAPARIN 40 MG/0.4 ML SQ SCH (16:49)
[2024-03-11] MEDS: hydrOXYzine HCL 25 MG TAB PO ONE (02:48)
[2024-03-11 06:25] LABS: Absolute Basophils 0.2 K/uL (0-0.5); Absolute Eosinophils 0.4 K/uL (0-0.5); Absolute Lymphocytes (CBC) 4.8 K/uL (0.7-4.9); Absolute Neutrophil 6.1 K/uL (1.8-8.0); Basophils % 1.3 % (0-1.3); Eosinophils % 3.1 % (0-4.4); Hematocrit 39.1 % (36.0-45.0); Lymphocytes % 38.6 % (15.3-44.8); MCH 27.2 pg (27.0-35.0); MCHC 33.4 g/dL (32.0-36.0); MCV 81.6 fL (80-100); MPV 8.7 fL (7.6-11.3); Monocytes % 8.3 % (3.3-12.3); Neutrophils % 48.7 % (41.7-73.7); Nucleated Red Blood Cells % 0.1 % (0-0); Platelets 323 thou/uL (152-406); RBC Red Blood Cell Count 4.79 M/uL (3.86-4.86)
[2024-03-11 06:49] LABS: Albumin 2.6 g/dL (3.4-5.0); Albumin/Globulin Ratio 0.7 (1.1-1.8); Anion Gap 8.5 mEq/L (5.0-15.0); Bilirubin Total 0.3 mg/dL (0.2-1.0); Globulin 3.5 g/dL (2.3-3.5); Potassium 4.5 mEq/L (3.5-5.1); Protein, Total 6.1 g/dL (6.4-8.2)
--- NOTE | 2024-03-11 09:05 | P.DS ---
Admission Date: 03/09/24 Discharge Date: 03/11/24 Disposition: ROUTINE DISCHARGE Discharge Condition: GOOD Reason for Admission: Abdominal Pain Brief History of Present Illness: 54 yrs old Female with past medical history of hypertension came to ER with abdominal pain and chest discomfort which has been on going for 2 days and and progressively got worse. Symptoms associated with back pain. Patient was assessed in the ER and was diagnosed with cholecystitis and was admitted for further management. Hospital Course: Diagnosis Acute cholecystitis Hypertension Polysubstance abuse Patient admitted to the medical floor and the following medical problems addressed: Acute cholecystitis Status post lap cholecystectomy by Dr. Vaca LFT trended up Patient hydrated with IV fluid and treated with empiric IV Zosyn given leukocytosis. Leukocytosis significantly improved. Patient has penicillin allergy listed however she tolerated IV Zosyn throughout her hospital stay Patient pain also significantly improved. General surgery Dr. Vaca evaluated patient today and deemed stable for discharge Patient is prescribed Augmentin, and Percocet for pain Hypertension Continued home medications. Polysubstance abuse Toxicology screen is positive for cocaine and opioides Cessation advised. Vital Signs/Physical Exam: Temp Pulse Resp BP Pulse Ox 98.1 F 76 16 123/69 96 03/11/24 03:06 03/11/24 03:06 03/11/24 03:06 03/11/24 03:06 03/11/24 03:06 General: Alert, In no apparent distress, Oriented x3 HEENT: Mucous membr. moist/pink, Sclerae nonicteric Neck: Supple, JVD not distended Respiratory: Clear to auscultation bilaterally, Normal air movement Cardiovascular: No edema, Regular rate/rhythm, Normal S1 S2 Gastrointestinal: Normal bowel sounds, Soft and benign, No tenderness, Other (Clean trocar wounds.) Musculoskeletal: No swelling Integumentary: No rashes, No cyanosis Neurological: Normal strength at 5/5 x4 extr Laboratory Data at Discharge: WBC 12.50 thou/uL (4.3-10.9) H 03/11/24 05:36 Hgb 13.0 g/dL (12.0-15.0) 03/11/24 05:36 Hct 39.1 % (36.0-45.0) 03/11/24 05:36 Plt Count 323 thou/uL (152-406) 03/11/24 05:36 PT 10.6 SECONDS (9.4-12.5) 03/08/24 18:50 INR 1.01 03/08/24 18:50 Sodium 139 mEq/L (136-145) 03/11/24 05:36 Potassium 4.5 mEq/L (3.5-5.1) 03/11/24 05:36 BUN 24 mg/dL (7-18) H 03/11/24 05:36 Creatinine 1.10 mg/dL (0.55-1.02) H 03/11/24 05:36 Glucose 137 mg/dL (74-106) H 03/11/24 05:36 Phosphorus 3.7 mg/dL (2.5-4.9) 03/10/24 04:20 Magnesium 2.0 mg/dL (1.6-2.4) 03/10/24 04:20 Total Bilirubin 0.3 mg/dL (0.2-1.0) 03/11/24 05:36 AST 29 U/L (15-37) 03/11/24 05:36 ALT 76 U/L (13-56) H 03/11/24 05:36 Alkaline Phosphatase 61 U/L (45-117) 03/11/24 05:36 Lipase 51 U/L (13-75) 03/08/24 18:50 Home Medications: Gabapentin 300 mg PO TID 03/09/24 Orphenadrine Citrate 100 mg PO BID 03/09/24 hydrOXYzine HCL [Atarax] 50 mg PO DAILY 03/09/24 Amox/Clavulanate [Augmentin 875-125 Tab] 1 each PO BID #14 tab 03/11/24 Oxycodone HCl/Acetaminophen [Percocet 5-325 mg Tablet] 1 each PO Q6H PRN #12 tab 03/11/24 New Medications: Amox/Clavulanate [Augmentin 875-125 Tab] 1 each PO BID #14 tab Oxycodone HCl/Acetaminophen [Percocet 5-325 mg Tablet] 1 each PO Q6H PRN #12 tab PRN Reason: Pain Physician Discharge Instructions: Activity as Tolerated. Use incentive spirometer, Drink adequate Fluids. Monitor surgical site for signs and symptoms of infection. Follow up as directed by Physician. Do not submerge in water, no bathtub, pool, sauna until cleared at follow up appointment. Diet: Widen Activity: No lifting more than 10 lbs Followup: Evan Vaca MD [ACTIVE - CAN ADMIT] - 1-2 Weeks NONE,NONE [Primary Care Provider] - Time spent managing pt's care (in minutes): 33
[2024-03-11 10:08] VITALS: BP 144/78; TEMP 97.8
[2024-03-11] MEDS: AMOX/K CLAV 875 MG TAB PO SCH (10:12)
== END 2024-03-11 11:41 | disposition home or self-care (01) | DRG 419 ==
LOC: ER 18:34 → ERHOLD 22:02 → 2ND 03-09 13:25 → OBSVTOIN 03-09 21:05
PROVIDERS: ADMIT Family Medicine; ATTEND Internal Medicine
PROC: BF52200 Other Imaging of Gallbladder using Fluorescing Agent, Indocyanine Green Dye, Intraoperative (ICD-10-PCS; 2024-03-09)
PROC: 0FT44ZZ Resection of Gallbladder, Percutaneous Endoscopic Approach (ICD-10-PCS; principal; 2024-03-09 11:15)
DX: K80.00 Calculus of gallbladder with acute cholecystitis without obstruction (principal); I10 Essential (primary) hypertension; F14.10 Cocaine abuse, uncomplicated; F17.210 Nicotine dependence, cigarettes, uncomplicated; Z88.0 Allergy status to penicillin; Z56.0 Unemployment, unspecified; Z88.1 Allergy status to other antibiotic agents
CPT/HCPCS: 36415; 71045; 71275; 74175; 76705; 80048; 80053; 80076; 80307; 81001; 81003; 83690; 83735; 83880; 84100; 84484; 85025; 85610; 88304; 93005; 96365; 96375; 99285; G0378; J0360; J0696; J1100; J1171; J1650; J2003; J2250; J2270; J2405; J2543; J2704; J2710; J3010; J7030; J7120; Q9967

== ENCOUNTER 2024-03-15 11:08 | Emergency (ER) | payer SELFPAY ==
--- NOTE | 2024-03-15 11:36 | EDPHYS ---
Physician Documentation [facility] Name: Chantal Piña Age: 54 yrs Sex: Female : 1970 Arrival Date: 03/15/2024 Time: 11:08 Bed IW2 Private MD: ED Physician Polo Ontiveros HPI: 03/15 11:36 This 54 yrs old Female presents to ER via Ambulatory with complaints of Suture Removal. ms3 11:36 Chantal Piña is a 54-year-old female who presents to the Emergency Department with ms3 concerns related to her postoperative care. She reports she had a cholecystectomy performed on Thursday by Dr Vaca. She denies having any fevers or chills.. 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 - Infectious Disease History:: Denies. - Social history:: Smoking status: Patient reports the use of cigarette tobacco products, smokes one-half pack cigarettes per day. ROS: 11:36 Constitutional: Negative for fever, and chills. Cardiovascular: Negative for chest ms3 pain, and palpitations. Respiratory: Negative for shortness of breath, cough, wheezing, and pleuritic chest pain, MS/Extremity: Negative for injury and deformity, 11:36 Skin: Positive for post operative incisions, Exam: 11:36 Constitutional: This is a well developed, well nourished patient who is awake, alert, ms3 and in no acute distress. Cardiovascular: Regular rate and rhythm with a normal S1 and S2. No gallops, murmurs, or rubs. Normal PMI, no JVD. No pulse deficits. Respiratory: Lungs have equal breath sounds bilaterally, clear to auscultation and percussion. No rales, rhonchi or wheezes noted. No increased work of breathing, no retractions or nasal flaring. Abdomen/GI: Soft, non-tender, with normal bowel sounds. No distension or tympany. No guarding or rebound. No evidence of tenderness throughout. MS/ Extremity: Pulses equal, no cyanosis. Neurovascular intact. Full, normal range of motion. 11:36 Skin: surgical abdominal incisions without surrounding erythema or discharge. Vital Signs: 11:22 BP 137 / 94; Pulse 79; Resp 18; Temp 98.4; Pulse Ox 100% ; Weight 72.57 kg; Height 5 ap3 ft. 1 in. ; Pain 8/10; 11:22 Body Mass Index 30.23 (72.57 kg, 154.94 cm) ap3 11:22 Pain Scale: Adult ap3 MDM: 11:33 Medical Screening Exam initiated ms3 11:36 Data reviewed: vital signs, nurses notes, lab test result(s), radiologic studies, and ms3 as a result, I will discharge patient. Management of patient was discussed with the following: Supply Chain Business Analyst: Discussed case with Dr Vaca. Would like patient to follow up in clinic to have clark removed.. Counseling: I had a detailed discussion with the patient and/or guardian regarding the historical points, exam findings, and any diagnostic results supporting the discharge/admit diagnosis, the need for outpatient follow up, to return to the emergency department if symptoms worsen or persist or if there are any questions or concerns that arise at home. Special discussion: I discussed with the patient/guardian in detail that at this point there is no indication for admission to the hospital. It is understood, however, that if the symptoms persist or worsen the patient needs to return immediately for re-evaluation. ED course: Case discussed with Dr. Vaca and he recommends patient follow-up in clinic for staple removal. Discussed my conversation with Dr. LOLY Norton with the patient. Patient to follow-up with Dr. SALCIDO 7 1 to 2 days. Patient understands plan. All questions were answered.. Administered Medications: No medications were administered Disposition Summary: 03/15/24 11:35 Discharge Ordered Notes: Location: Home ms3 Condition: Stable ms3 Diagnosis - Post op wound check ms3 Followup: ms3 - With: Evan Vaca MD - When: 1 - 2 days - Reason: Discharge Instructions: - Discharge Summary Sheet ms3 - Medical Screening Exam ms3 Forms: - Medication Reconciliation Form ms3 - Antibiotic Education ms3 - Prescription Opioid Use ms3 - Patient Portal Instructions ms3 - Leadership Thank You Letter ms3 Signatures: Pam Barker RN RN ap3 Ontiveros, Polo, DO DO ms3
--- NOTE | 2024-03-15 11:36 | ER ---
Nurse's Notes [facility] Name: Chantal Piña Age: 54 yrs Sex: Female : 1970 Arrival Date: 03/15/2024 Time: 11:08 Bed IW2 Private MD: Diagnosis: Post op wound check Presentation: 03/15 11:22 Chief complaint: Patient states: she had her gallbladder removed last week and is ap3 requesting clark to be removed. Coronavirus screen: At this time, the client does not indicate any symptoms associated with coronavirus-19. Ebola Screen: No symptoms or risks identified at this time. Initial Sepsis Screen: Does the patient meet any 2 criteria?. Initial Sepsis Screen: Does the patient have a suspected source of infection? No. Patient's initial sepsis screen is negative. Risk Assessment: Do you want to hurt yourself or someone else? Patient reports no desire to harm self or others. Onset of symptoms is unknown. 11:22 Method Of Arrival: Ambulatory ap3 11:22 Acuity: NIKI 3 ap3 Triage Assessment: 11:25 General: Appears in no apparent distress. Behavior is calm, cooperative, appropriate ap3 for age. Pain: Complains of pain in abdomen. Neuro: Level of Consciousness is awake, alert, obeys commands, Oriented to person, place, time, situation. Cardiovascular: Patient's skin is warm and dry. Respiratory: Airway is patent Respiratory effort is even, unlabored, Respiratory pattern is regular, symmetrical. 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 - Infectious Disease History:: Denies. - Social history:: Smoking status: Patient reports the use of cigarette tobacco products, smokes one-half pack cigarettes per day. Screenin:25 [facility] ED Fall Risk Assessment (Adult) History of falling in the last 3 months, ap3 including since admission No falls in past 3 months (0 pts) Confusion or Disorientation No (0 pts) Intoxicated or Sedated No (0 pts) Impaired Gait No (0 pts) Mobility Assist Device Used No (0 pt) Altered Elimination No (0 pt) Score/Fall Risk Level 0 - 2 = Low Risk Oriented to surroundings, Maintained a safe environment, Educated pt \T\ family on fall prevention, incl call for assistance when getting out of bed, Assessed \T\ reinforced patient's understanding of fall precautions, Hourly rounding (assess needs \T\ fall precautionary measures) done, Used ambulatory aids as needed (educated on \T\ assisted with), Used gait belt as appropriate. Abuse screen: Denies threats or abuse. Nutritional screening: No deficits noted. Tuberculosis screening: No symptoms or risk factors identified. Assessment: 12:17 General: Appears in no apparent distress. comfortable, Behavior is calm, cooperative. ss Neuro: Level of Consciousness is awake, alert, obeys commands, Oriented to person, place, time, situation. Respiratory: Airway is patent Respiratory effort is even, unlabored. EENT: Oral mucosa is moist. Derm: Skin is intact, is healthy with good turgor, Skin is pink, warm \T\ dry. normal. Vital Signs: 11:22 BP 137 / 94; Pulse 79; Resp 18; Temp 98.4; Pulse Ox 100% ; Weight 72.57 kg; Height 5 ap3 ft. 1 in. ; Pain 8/10; 11:22 Body Mass Index 30.23 (72.57 kg, 154.94 cm) ap3 11:22 Pain Scale: Adult ap3 ED Course: 11:11 Patient arrived in ED. sj2 11:15 Polo Ontiveros DO is Attending Physician. ms3 11:24 Triage completed. ap3 11:25 Arm band placed on right wrist. ap3 11:34 Evan Vaca MD is Referral Physician. ms3 12:17 Patient has correct armband on for positive identification. ss 12:17 No provider procedures requiring assistance completed. Patient did not have IV access ss during this emergency room visit. Administered Medications: No medications were administered Medication: 12:17 VIS not applicable for this client. ss Outcome: 11:35 Discharge ordered by . ms3 12:17 Discharged to home ambulatory, ss 12:17 Condition: good 12:17 Discharge instructions given to patient, Instructed on discharge instructions, follow up and referral plans. Demonstrated understanding of instructions, follow-up care, 12:18 Patient left the ED. ss Signatures: Bianka Cormier RN RN ss Pam Barker RN RN ap3 Polo Ontiveros DO DO ms3 Fidel Ornelas 2
[2024-03-15 15:03] VITALS: BP 137/94; TEMP 98.4; O2SAT 100
--- OUTSIDE RECORDS SUMMARY | 2024-03-16 02:20 | XMS REPORT | Clinical Summary ---
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
== END 2024-03-15 12:18 | disposition home or self-care (01) ==
LOC: ER 11:08
DX: Z48.02 Encounter for removal of sutures (principal)
CPT/HCPCS: 99282

== ENCOUNTER 2024-03-17 11:47 | Emergency (ER) | payer SELFPAY ==
--- OUTSIDE RECORDS SUMMARY | 2024-03-17 11:49 | XMS REPORT | Clinical Summary ---
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 Consulting Physician Preventive Medicine 01/18/21
--- NOTE | 2024-03-17 12:00 | EDPHYS ---
Physician Documentation [facility] Name: Chantal Piña Age: 54 yrs Sex: Female : 1970 Arrival Date: 03/17/2024 Time: 11:47 Bed 10 Private MD: ED Physician Julio Cesar Rodriguez HPI: 03/17 12:00 This 54 yrs old Female presents to ER via Unassigned with complaints of Suture Removal. rt 12:00 Patient is 1 week out from a cholecystectomy by Dr. Vaca. His presenting requesting rt staple removal. Denies any complications. Symptoms are mild in severity, no other aggravating or alleviating factors.. 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 - Infectious Disease History:: Denies. - Social history:: Smoking status: unknown. ROS: 12:00 Constitutional: Negative for fever, chills, and weight loss, Neuro: Negative for rt headache, weakness, numbness, tingling, and seizure, 12:00 Skin: Positive for Stapled surgical wounds, Exam: 12:00 Constitutional: This is a well developed, well nourished patient who is awake, alert, rt and in no acute distress. Head/Face: Normocephalic, atraumatic. Skin: Warm, dry with normal turgor. Normal color with no rashes, no lesions, and no evidence of cellulitis. Neuro: Awake and alert, GCS 15, oriented to person, place, time, and situation. Cranial nerves II-XII grossly intact. Motor strength 5/5 in all extremities. Sensory grossly intact. Cerebellar exam normal. Normal gait. 12:00 Abdomen/GI: Surgical sites are clean, dry, intact, appropriate postoperative bruising, no focal areas of tenderness. Wounds appear to be well-healing, Vital Signs: 11:59 BP 138 / 90; Pulse 80; Resp 17; Temp 97.1; Pulse Ox 99% ; Weight 72.57 kg; Height 5 ft. jl7 1 in. ; Pain 8/10; 11:59 Body Mass Index 30.23 (72.57 kg, 154.94 cm) [facility] 11:59 Pain Scale: Adult jl7 Procedures: 12:00 Suture/Staple removal: Removed 11 clark, from abdomen, site appears well healed, rt Patient tolerated well, Total of 11 clark combined were removed from all 3 of the surgical sites. MDM: 11:53 Medical Screening Exam initiated rt 12:00 Differential Diagnosis Staple removal. Data reviewed: vital signs, nurses notes. rt Management of patient was discussed with the following: Parts Puller: Discussed with alyssa Matthews to remove clark. Counseling: I had a detailed discussion with the patient and/or guardian regarding the historical points, exam findings, and any diagnostic results supporting the discharge/admit diagnosis, the need for outpatient follow up. Administered Medications: No medications were administered Disposition Summary: 03/17/24 11:59 Discharge Ordered Notes: Location: Home rt Problem: new rt Symptoms: have improved rt Condition: Stable rt Diagnosis - Encounter for staple removal rt Followup: rt - With: Evan Vaca MD - When: 5 - 6 days - Reason: Discharge Instructions: - Discharge Summary Sheet rt - Suture Removal, Care After rt Forms: - Medication Reconciliation Form rt - Antibiotic Education rt - Prescription Opioid Use rt - Patient Portal Instructions rt - Leadership Thank You Letter rt Signatures: Den Steele RN RN jl7 Julio Cesar Rodriguez MD MD rt
--- NOTE | 2024-03-17 12:10 | ER ---
Nurse's Notes [facility] Name: Chantal Piña Age: 54 yrs Sex: Female : 1970 Arrival Date: 03/17/2024 Time: 11:47 Bed 10 Private MD: Diagnosis: Encounter for staple removal Presentation: 03/17 11:59 Chief complaint: Patient states: Cholecyectomy 7 days ago, requesting clark to be jl7 removed. Coronavirus screen: At this time, the client does not indicate any symptoms associated with coronavirus-19. Ebola Screen: No symptoms or risks identified at this time. Initial Sepsis Screen: Does the patient meet any 2 criteria? No. Patient's initial sepsis screen is negative. Does the patient have a suspected source of infection? No. Patient's initial sepsis screen is negative. Risk Assessment: Do you want to hurt yourself or someone else? Patient reports no desire to harm self or others. Onset of symptoms is unknown. 11:59 Method Of Arrival: Ambulatory [facility] 11:59 Acuity: NIKI 4 jl7 Triage Assessment: 12:02 General: Appears in no apparent distress. uncomfortable, Behavior is calm, cooperative, jl7 appropriate for age. Pain: Complains of pain in abdomen Pain currently is 8 out of 10 on a pain scale. Quality of pain is described as pt reports soreness that feels like a bruise under the skin. Derm: Wound noted Wound is well approximated surgical incisions x 3 noted to abdomen. 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 - Infectious Disease History:: Denies. - Social history:: Smoking status: unknown. Screenin:[address] [facility] ED Fall Risk Assessment (Adult) History of falling in the last 3 months, jb4 including since admission No falls in past 3 months (0 pts) Confusion or Disorientation No (0 pts) Intoxicated or Sedated No (0 pts) Impaired Gait No (0 pts) Mobility Assist Device Used No (0 pt) Altered Elimination No (0 pt) Score/Fall Risk Level 0 - 2 = Low Risk Oriented to surroundings, Maintained a safe environment. Abuse screen: Denies threats or abuse. Nutritional screening: No deficits noted. Tuberculosis screening: No symptoms or risk factors identified. Assessment: 12:07 Reassessment: Patient appears in no apparent distress at this time. Patient and/or jb4 family updated on plan of care and expected duration. Pain level reassessed. Patient is alert, oriented x 3, equal unlabored respirations, skin warm/dry/pink. Informed pt that ER physician advises her to keep the surgical site clean with soap and water. Vital Signs: 11:59 BP 138 / 90; Pulse 80; Resp 17; Temp 97.1; Pulse Ox 99% ; Weight 72.57 kg; Height 5 ft. jl7 1 in. ; Pain 8/10; 11:59 Body Mass Index 30.23 (72.57 kg, 154.94 cm) jl7 11:59 Pain Scale: Adult 7 ED Course: 11:49 Patient arrived in ED. im 11:49 Julio Cesar Rodriguez MD is Attending Physician. rt 11:59 Den Steele RN is Primary Nurse. jl7 11:59 Evan Vaca MD is Referral Physician. rt 12:02 Triage completed. jl7 12:02 Arm band placed on right wrist. jl7 12:07 Patient has correct armband on for positive identification. Bed in low position. Call jb4 light in reach. Side rails up X 1. Provided Education on: discharge instructions. 12:07 No provider procedures requiring assistance completed. Patient did not have IV access jb4 during this emergency room visit. Administered Medications: No medications were administered Medication: 12:07 VIS not applicable for this client. jb4 Outcome: :59 Discharge ordered by . rt 12:07 Discharged to home ambulatory, jb4 12:07 Condition: stable 12:07 Discharge instructions given to patient, Instructed on discharge instructions, follow up and referral plans. Demonstrated understanding of instructions, follow-up care, 12:09 Patient left the ED. jb4 Signatures: Pio Andino RN RN jb4 Den Steele RN RN jl7 Julio Cesar Rodriguez MD MD rt Kristine Rosales im
[2024-03-17 19:16] VITALS: BP 138/90; TEMP 97.1; O2SAT 99
== END 2024-03-17 12:09 | disposition home or self-care (01) ==
LOC: ER 11:47
DX: Z48.02 Encounter for removal of sutures (principal)
CPT/HCPCS: 99282